=== PATIENT | female | born 1950 | race Caucasian/White ===

== ENCOUNTER 2020-08-18 12:44 | Outpatient (REF) | payer MEDICARE, SELFPAY ==
--- NOTE | ~2020-08-18 | MM_ITS ---
EXAMINATION: MM SCREENING DIGITAL BREAST TOMOSYNTHESIS, BILATERAL CLINICAL INFORMATION: Screening. Asymptomatic. Left stereotactic biopsy 02/21/2006 (proliferative fibrocystic changes, florid duct cell hyperplasia, and columnar cell hyperplasia) status post excision 03/30/2006. The lifetime risk of breast cancer based on the Tyrer-Cuzick Model is 17%. COMPARISON: Mammography: 02/20/2019, 01/20/2018, 09/29/2016 TECHNIQUE: Digital breast tomosynthesis is performed in both the craniocaudal and mediolateral oblique views along with computer-aided detection (CAD). Synthesized 2D images are generated from the tomosynthesis. Technologist notes technically challenging exam due to patient's back and leg pain. Images tailored to patient capabilities. FINDINGS: There are scattered areas of fibroglandular density (ACR BI-RADS breast composition Category b). There are no significant masses, abnormal calcifications, or other abnormalities. There is old scarring mid outer left breast again demonstrated. No significant changes from prior studies. MM/MM tomosynthesis screening BI IMPRESSION: No mammographic evidence of malignancy. ASSESSMENT: BI-RADS 2: Benign RECOMMENDATION: Routine annual mammography screening. This patient's information was entered into a reminder system with a target due date for their next mammogram.
== END 2020-08-18 12:45 | disposition home or self-care (01) ==
LOC: HO.MAMMO 12:44
PROVIDERS: PCP Internal Medicine; Visit Provider Internal Medicine
DX: Z12.31 Encounter for screening mammogram for malignant neoplasm of breast (principal)
CPT/HCPCS: 77063; 77067

== ENCOUNTER 2022-02-11 11:28 | Outpatient (REF) | payer MEDICARE, SELFPAY ==
[2022-02-11 14:08] LABS: MANUAL DIFF FLAG NO
[2022-02-11 14:20] LABS: Basophils Absolute Auto 0.1 X10*3/uL (0.0-0.2); Basophils Percent Auto 0.8 % (0-2); Eosinophils Absolute Auto 0.1 X10*3/uL (0.0-0.4); Hematocrit 41.8 % (37.0-47.0); Hemoglobin 13.8 g/dl (12.0-16.0); Imm Gran Abs Auto 0.02 X10*3/uL (0.00-0.03); Imm Gran Pct Auto 0.3 % (0.0-0.4); Lymphocytes Absolute Auto 1.6 X10*3/uL (1.2-4.9); Lymphocytes Percent Auto 22.4 % (20-40); Mean Corpuscular Hemoglobin 30.4 pg (27.0-33.0); Mean Corpuscular Volume 92.1 fL (80.0-98.0); Mean Platelet Volume 10.8 fL (9.4-12.3); Monocytes Absolute Auto 0.6 X10*3/uL (0.1-1.2); Monocytes Percent Auto 7.9 % (2-11); Neutrophils Absolute Auto 4.8 x10*3/uL (2.0-8.3); Neutrophils Percent Auto 67.6 % (45-73); Platelet Count 225 X10*3/uL (160-400); Red Blood Count 4.54 X10*6/uL (4.20-5.50); Red Cell Distribution Width 12.3 % (11.0-16.0); White Blood Count 7.1 X10*3/uL (4.8-10.8)
[2022-02-11 14:51] LABS: Alanine Aminotransferase 153 U/L (0-31); Albumin Level 3.9 g/dL (3.5-5.0); Alkaline Phosphatase 136 U/L (39-117); Anion Gap 15 (12-20); Aspartate Amino Transferase 37 U/L (5-31); Bilirubin Total 0.5 mg/dL (0.0-1.0); Blood Urea Nitrogen 18 mg/dL (9-16); Calcium 9.4 mg/dL (8.4-10.2); Carbon Dioxide 26 mmol/L (22-29); Chloride 102 mmol/L (96-108); Cholesterol 239 mg/dL; Estimated Glomerular Filt Rate > 60; Glucose Random 134 mg/dL (60-115); Potassium 4.3 mmol/L (3.3-5.1); Sodium 139 mmol/L (135-145); Total Protein 6.7 g/dL (6.5-8.0)
== END 2022-02-11 11:29 | disposition home or self-care (01) ==
LOC: HO.10HDL 11:28
PROVIDERS: Visit Provider Internal Medicine
DX: R79.89 Other specified abnormal findings of blood chemistry (principal); I10 Essential (primary) hypertension
CPT/HCPCS: 36415; 80053; 82465; 85025

== ENCOUNTER 2022-03-31 13:05 | Outpatient (REF) | payer MEDICARE, SELFPAY ==
[2022-03-31 15:04] LABS: Alanine Aminotransferase 10 U/L (0-31); Albumin Level 4.2 g/dL (3.5-5.0); Alkaline Phosphatase 80 U/L (39-117); Anion Gap 14 (12-20); Aspartate Amino Transferase 18 U/L (5-31); Bilirubin Total 0.6 mg/dL (0.0-1.0); Blood Urea Nitrogen 24 mg/dL (9-16); Calcium 9.7 mg/dL (8.4-10.2); Carbon Dioxide 24 mmol/L (22-29); Chloride 102 mmol/L (96-108); Estimated Glomerular Filt Rate > 60; Glucose Random 122 mg/dL (60-115); Potassium 4.3 mmol/L (3.3-5.1); Sodium 136 mmol/L (135-145)
== END 2022-03-31 13:06 | disposition home or self-care (01) ==
LOC: HO.10HDL 13:05
PROVIDERS: Visit Provider Internal Medicine
DX: E78.00 Pure hypercholesterolemia, unspecified (principal)
CPT/HCPCS: 36415; 80053

== ENCOUNTER 2022-05-11 10:58 | Outpatient (REF) | payer MEDICARE, SELFPAY ==
[2022-05-11 15:27] LABS: Free T4 (Free Thyroxine) 0.99 ng/dL (0.71-1.85); Thyroid Stimulating Hormone 1.13 uIU/mL (0.32-4.0)
[2022-05-11 15:37] LABS: Vitamin B12 259 pg/mL (200-900)
[2022-05-11 17:14] LABS: C Reactive Protein < 0.10 mg/dL (< or = 0.50); Cholesterol 255 mg/dL; HDL Cholesterol 62 mg/dL; LDL Cholesterol Calculated 166 mg/dl; Triglycerides 137 mg/dL
== END 2022-05-11 10:59 | disposition home or self-care (01) ==
LOC: HO.10HDL 10:58
PROVIDERS: Visit Provider Internal Medicine
DX: E78.00 Pure hypercholesterolemia, unspecified (principal); R53.83 Other fatigue
CPT/HCPCS: 36415; 80061; 82607; 84439; 84443; 86140

== ENCOUNTER 2022-05-12 07:33 | Outpatient (REF) | payer MEDICARE, SELFPAY ==
[2022-05-12 13:41] LABS: MANUAL DIFF FLAG NO
[2022-05-12 13:45] LABS: Basophils Absolute Auto 0.1 X10*3/uL (0.0-0.2); Basophils Percent Auto 0.7 % (0-2); Eosinophils Absolute Auto 0.1 X10*3/uL (0.0-0.4); Eosinophils Percent Auto 0.7 % (0-4); Hematocrit 45.1 % (37.0-47.0); Hemoglobin 14.8 g/dl (12.0-16.0); Imm Gran Abs Auto 0.01 X10*3/uL (0.00-0.03); Imm Gran Pct Auto 0.1 % (0.0-0.4); Lymphocytes Absolute Auto 2.2 X10*3/uL (1.2-4.9); Lymphocytes Percent Auto 29.1 % (20-40); Mean Corpuscular HGB Conc 32.8 g/dl (31.0-35.0); Mean Corpuscular Hemoglobin 30.5 pg (27.0-33.0); Mean Corpuscular Volume 92.8 fL (80.0-98.0); Mean Platelet Volume 10.9 fL (9.4-12.3); Monocytes Absolute Auto 0.6 X10*3/uL (0.1-1.2); Monocytes Percent Auto 8.1 % (2-11); Neutrophils Absolute Auto 4.6 x10*3/uL (2.0-8.3); Neutrophils Percent Auto 61.3 % (45-73); Platelet Count 213 X10*3/uL (160-400); Red Blood Count 4.86 X10*6/uL (4.20-5.50); Red Cell Distribution Width 12.5 % (11.0-16.0); White Blood Count 7.6 X10*3/uL (4.8-10.8)
== END 2022-05-12 07:34 | disposition home or self-care (01) ==
LOC: HO.10HDL 07:33
PROVIDERS: Visit Provider Internal Medicine
DX: R53.83 Other fatigue (principal); E78.00 Pure hypercholesterolemia, unspecified
CPT/HCPCS: 36415; 85025

== ENCOUNTER 2022-05-14 12:20 | Outpatient (REF) | payer MEDICARE, SELFPAY ==
[2022-05-14 14:26] LABS: Alanine Aminotransferase 8 U/L (0-31); Albumin Level 4.1 g/dL (3.5-5.0); Alkaline Phosphatase 76 U/L (39-117); Anion Gap 13 (12-20); Aspartate Amino Transferase 17 U/L (5-31); Bilirubin Total 0.5 mg/dL (0.0-1.0); Blood Urea Nitrogen 13 mg/dL (9-16); Calcium 9.8 mg/dL (8.4-10.2); Carbon Dioxide 26 mmol/L (22-29); Chloride 102 mmol/L (96-108); Estimated Glomerular Filt Rate > 60; Glucose Random 101 mg/dL (60-115); Magnesium 2.1 mg/dL (1.6-2.6); Potassium 4.4 mmol/L (3.3-5.1); Sodium 137 mmol/L (135-145); Total Protein 6.7 g/dL (6.5-8.0)
== END 2022-05-14 12:21 | disposition home or self-care (01) ==
LOC: HO.10HDL 12:20
PROVIDERS: Visit Provider Internal Medicine
DX: E78.00 Pure hypercholesterolemia, unspecified (principal); I10 Essential (primary) hypertension; R25.2 Cramp and spasm; M25.50 Pain in unspecified joint
CPT/HCPCS: 36415; 80053; 83735; 84550

== ENCOUNTER 2022-07-05 11:41 | Outpatient (REF) | payer MEDICARE, SELFPAY ==
[2022-07-05 14:25] LABS: Alanine Aminotransferase 10 U/L (0-31); Albumin Level 4.2 g/dL (3.5-5.0); Alkaline Phosphatase 73 U/L (39-117); Anion Gap 13 (12-20); Aspartate Amino Transferase 18 U/L (5-31); Bilirubin Total 0.6 mg/dL (0.0-1.0); Blood Urea Nitrogen 18 mg/dL (9-16); C Reactive Protein < 0.10 mg/dL (< or = 0.50); Calcium 9.5 mg/dL (8.4-10.2); Carbon Dioxide 26 mmol/L (22-29); Chloride 103 mmol/L (96-108); Estimated Glomerular Filt Rate > 60; Glucose Fasting 125 mg/dL (60-99); Sodium 138 mmol/L (135-145); Total Protein 6.7 g/dL (6.5-8.0)
[2022-07-05 14:37] LABS: Erythrocyte Sedimentation Rate 6 MM/HR (0-20)
[2022-07-05 14:46] LABS: Uric Acid 5.4 mg/dL (2.4-5.7)
== END 2022-07-05 11:42 | disposition home or self-care (01) ==
LOC: HO.10HDL 11:41
PROVIDERS: Visit Provider Internal Medicine
DX: M79.673 Pain in unspecified foot (principal)
CPT/HCPCS: 36415; 80053; 84550; 85652; 86140

== ENCOUNTER 2022-11-04 10:50 | Outpatient (REF) | payer MEDICARE, SELFPAY ==
[2022-11-04 14:17] LABS: Estimated Average Glucose 100 mg/dL; Hemoglobin A1c % 5.1 %
[2022-11-04 14:35] LABS: Anion Gap 16 (12-20); Blood Urea Nitrogen 16 mg/dL (9-16); Calcium 9.9 mg/dL (8.4-10.2); Carbon Dioxide 28 mmol/L (22-29); Chloride 99 mmol/L (96-108); Estimated Glomerular Filt Rate > 60; Glucose Random 146 mg/dL (60-115); Potassium 3.7 mmol/L (3.3-5.1); Sodium 139 mmol/L (135-145)
== END 2022-11-04 10:51 | disposition home or self-care (01) ==
LOC: HO.10HDL 10:50
PROVIDERS: Visit Provider Internal Medicine
DX: R73.03 Prediabetes (principal)
CPT/HCPCS: 36415; 80048; 83036

== ENCOUNTER 2023-02-23 11:50 | Outpatient (REF) | payer MEDICARE, SELFPAY ==
[2023-02-23 13:28] LABS: MANUAL DIFF FLAG NO
[2023-02-23 13:41] LABS: Basophils Percent Auto 0.5 % (0-2); Eosinophils Absolute Auto 0.1 X10*3/uL (0.0-0.4); Eosinophils Percent Auto 0.9 % (0-4); Hematocrit 45.8 % (37.0-47.0); Imm Gran Abs Auto 0.03 X10*3/uL (0.00-0.03); Imm Gran Pct Auto 0.4 % (0.0-0.4); Lymphocytes Absolute Auto 1.5 X10*3/uL (1.2-4.9); Lymphocytes Percent Auto 18.7 % (20-40); Mean Corpuscular HGB Conc 32.8 g/dl (31.0-35.0); Mean Corpuscular Hemoglobin 30.4 pg (27.0-33.0); Mean Corpuscular Volume 92.7 fL (80.0-98.0); Monocytes Absolute Auto 0.8 X10*3/uL (0.1-1.2); Monocytes Percent Auto 9.3 % (2-11); Neutrophils Absolute Auto 5.7 x10*3/uL (2.0-8.3); Neutrophils Percent Auto 70.2 % (45-73); Platelet Count 235 X10*3/uL (160-400); Red Blood Count 4.94 X10*6/uL (4.20-5.50); Red Cell Distribution Width 12.8 % (11.0-16.0); White Blood Count 8.1 X10*3/uL (4.8-10.8)
[2023-02-23 14:14] LABS: Free T4 (Free Thyroxine) 0.96 ng/dL (0.71-1.85); Thyroid Stimulating Hormone 1.34 uIU/mL (0.32-4.0)
== END 2023-02-23 11:51 | disposition home or self-care (01) ==
LOC: HO.10HDL 11:50
PROVIDERS: Visit Provider Internal Medicine
DX: R53.83 Other fatigue (principal)
CPT/HCPCS: 36415; 84439; 84443; 85025

== ENCOUNTER 2023-05-10 11:13 | Outpatient (REF) | payer MEDICARE, SELFPAY ==
[2023-05-10 13:18] LABS: MANUAL DIFF FLAG NO
[2023-05-10 13:21] LABS: Basophils Percent Auto 0.5 % (0-2); Eosinophils Percent Auto 0.4 % (0-4); Hematocrit 46.5 % (37.0-47.0); Hemoglobin 15.5 g/dl (12.0-16.0); Imm Gran Abs Auto 0.02 X10*3/uL (0.00-0.03); Imm Gran Pct Auto 0.3 % (0.0-0.4); Lymphocytes Absolute Auto 1.6 X10*3/uL (1.2-4.9); Lymphocytes Percent Auto 21.5 % (20-40); Mean Corpuscular HGB Conc 33.3 g/dl (31.0-35.0); Mean Corpuscular Hemoglobin 30.3 pg (27.0-33.0); Mean Corpuscular Volume 90.8 fL (80.0-98.0); Mean Platelet Volume 10.5 fL (9.4-12.3); Monocytes Absolute Auto 0.6 X10*3/uL (0.1-1.2); Monocytes Percent Auto 7.8 % (2-11); Neutrophils Absolute Auto 5.1 x10*3/uL (2.0-8.3); Neutrophils Percent Auto 69.5 % (45-73); Platelet Count 214 X10*3/uL (160-400); Red Blood Count 5.12 X10*6/uL (4.20-5.50); Red Cell Distribution Width 12.4 % (11.0-16.0); White Blood Count 7.3 X10*3/uL (4.8-10.8)
[2023-05-10 15:11] LABS: Alanine Aminotransferase 13 U/L (0-31); Albumin Level 4.3 g/dL (3.5-5.0); Alkaline Phosphatase 76 U/L (39-117); Anion Gap 14 (12-20); Aspartate Amino Transferase 21 U/L (5-31); Bilirubin Total 0.5 mg/dL (0.0-1.0); Blood Urea Nitrogen 17 mg/dL (9-16); C Reactive Protein < 0.04 mg/dL (< or = 0.50); Carbon Dioxide 29 mmol/L (22-29); Chloride 102 mmol/L (96-108); Cholesterol 269 mg/dL (<200); Estimated Glomerular Filt Rate > 60; Glucose Random 94 mg/dL (60-115); Sodium 141 mmol/L (135-145); Total Protein 7.5 g/dL (6.5-8.0); Uric Acid 5.1 mg/dL (2.4-5.7)
== END 2023-05-10 11:14 | disposition home or self-care (01) ==
LOC: HO.10HDL 11:13
PROVIDERS: Visit Provider Internal Medicine
DX: I10 Essential (primary) hypertension (principal); M79.7 Fibromyalgia; M79.673 Pain in unspecified foot
CPT/HCPCS: 36415; 80053; 82306; 82465; 84550; 85025; 86140

== ENCOUNTER 2023-06-16 12:21 | Outpatient (REF) | payer MEDICARE, SELFPAY ==
--- NOTE | ~2023-06-16 | MM_ITS ---
EXAMINATION: BONE DENSITOMETRY CLINICAL INDICATION: Asymptomatic menopausal state. COMPARISON: Baseline BD dated 02/15/2014. TECHNIQUE: Using a textPlus DXA System (software version: 13.1) manufactured by [employer], dual-energy x-ray absorptiometry was performed of the lumbar spine and left hip. The images are of good technical quality. Summary results are attached. FINDINGS: LEFT FEMUR, NECK: Current: BMD 0.571 g/cm2, Z-score -1.6, T-score -3.4, osteoporosis. Baseline: BMD 0.620 g/cm2. LEFT FEMUR, TOTAL: Current: BMD 0.538 g/cm2, Z-score -2.2, T-score -3.7, osteoporosis, 11.7% decrease from baseline (<5% change is not significant). Baseline: BMD 0.609 g/cm2. AP SPINE L1-L4: Current: BMD 0.789 g/cm2, Z-score -1.8, T-score -3.3, osteoporosis, 12.7% decrease from baseline (<5% change is not significant). Baseline: BMD 0.904 g/cm2. IDENTIFIED RISK FACTORS: Height loss, history of fracture (adult), menopause, osteoporosis. HISTORY OF FRACTURE: Other. MEDICATIONS: Calcium, vitamin D. MM/XR DEXA axial skeleton IMPRESSION: 1. DIAGNOSIS: Osteoporosis based on the lowest T-score value of -3.7 in the total femur applying World Health Organization criteria. 2. 10-YEAR FRACTURE RISK PREDICTION, FRAX: According to the guidelines, FRAX calculation should only be performed on patients in the osteopenia bone density category. Therefore, FRAX was not performed on this patient. 3. Treatment Recommendations: NOF guidelines recommend consideration for treatment in postmenopausal women and men age 50 and older presenting with the following: -A hip or vertebral (clinical or morphometric) fracture. -T-score less than or equal to -2.5 at the femoral neck or spine after appropriate evaluation to exclude secondary causes. -Low bone mass at the hip or spine and a 10-year fracture probability by FRAX of greater than or equal to 3% for hip fracture or greater than or equal to 20% for major osteoporotic fracture based on the [place] adapted WHO algorithm. 4. Other Recommendations: All treatment decisions require clinical judgment and consideration of individual patient factors, including patient preferences, comorbidities, previous drug use, risk factors not captured in the FRAX model (e.g. frailty, falls, vitamin D deficiency, increased bone turnover, interval significant decline in bone density) and possible under or overestimation of fracture risk by FRAX. Additional medical evaluation for secondary cause of low bone mineral density may be appropriate. FUTURE SCAN RECOMMENDATION: People with diagnosed cases of osteoporosis or at high risk for fracture should have regular bone mineral density tests. For patients eligible for Medicare, routine testing is allowed once every 2 years. The testing frequency can be increased to one year for patients who have rapidly progressing disease, those who are receiving or discontinuing medical therapy to restore bone mass, or have additional risk factors.
--- NOTE | ~2023-06-16 | MM_ITS ---
EXAMINATION: MM SCREENING DIGITAL BREAST TOMOSYNTHESIS, BILATERAL CLINICAL INFORMATION: Screening. Asymptomatic. The patient is status post benign left excisional biopsy in 2006. COMPARISON: Mammography: This study is compared with prior exams dating back to 2018. TECHNIQUE: Digital breast tomosynthesis is performed in both the craniocaudal and mediolateral oblique views along with computer-aided detection (CAD). Synthesized 2D images are generated from the tomosynthesis. FINDINGS: There are scattered areas of fibroglandular density (ACR BI-RADS breast composition Category b). There are no significant masses, abnormal calcifications, or other abnormalities. There are postsurgical changes in the lateral aspect of the left breast. There is unchanged, coarse, benign calcification in the lateral aspect of the right breast. MM/MM tomosynthesis screening BI IMPRESSION: No mammographic evidence of malignancy. ASSESSMENT: BI-RADS BI-RADS 2 - Benign Findings RECOMMENDATION: Routine annual mammography screening. 1 year F/U This examination should not preclude the clinical evaluation of a suspicious palpable abnormality. This patient's information was entered into a reminder system with a target due date for their next mammogram.
== END 2023-06-16 12:22 | disposition home or self-care (01) ==
LOC: HO.MAMMO 12:21
PROVIDERS: PCP Internal Medicine; Visit Provider Internal Medicine
DX: Z12.31 Encounter for screening mammogram for malignant neoplasm of breast (principal); Z13.820 Encounter for screening for osteoporosis; Z78.0 Asymptomatic menopausal state
CPT/HCPCS: 77063; 77067; 77080

== ENCOUNTER → 2023-06-16 13:00 | Outpatient (BNV) | payer MEDICARE, SELFPAY | PROVIDERS: PCP Internal Medicine; Visit Provider Radiology Diagnostic Radiology | DX: Z12.31 Encounter for screening mammogram for malignant neoplasm of breast (principal) | CPT/HCPCS: 77063; 77067 ==

== ENCOUNTER 2023-07-01 13:48 | Emergency (ER) | payer MEDICARE, SELFPAY ==
--- NOTE | 2023-07-01 | ECG_ITS ---
Test Reason : CHEST PAIN Blood Pressure : / mmHG Vent. Rate : 081 BPM Atrial Rate : 081 BPM P-R Int : 138 ms QRS Dur : 076 ms QT Int : 358 ms P-R-T Axes : 080 047 064 degrees QTc Int : 415 ms Normal sinus rhythm with sinus arrhythmia Normal ECG When compared with ECG of 18-SEP-2005 07:39, No significant change was found Referred By: Generic ED Physician Electronically Signed By:PAVAN VILLALBA MD
--- NOTE | ~2023-07-01 | XR_ITS ---
EXAMINATION: XR CHEST CLINICAL INFORMATION: Pain. COMPARISON: Chest radiograph dated 08/26/2009. TECHNIQUE: Frontal view of the chest was obtained. FINDINGS: Heart size is normal. The lungs are clear. The lungs are hyperinflated and there is flattening of the diaphragm consistent with chronic obstructive pulmonary disease. Pleural spaces are clear. No pneumothorax. No acute osseous abnormality. XR/XR chest 1V IMPRESSION: Findings consistent with chronic obstructive pulmonary disease. No active disease.
[2023-07-01 14:06] VITALS: BP 177/87; PULSE 68; RESP 16; TEMP 37; O2SAT 95; BMI 24.0
[2023-07-01 14:29] LABS: MANUAL DIFF FLAG NO
[2023-07-01 14:31] LABS: Basophils Percent Auto 0.5 % (0-2); Eosinophils Percent Auto 0.3 % (0-4); Imm Gran Abs Auto 0.02 X10*3/uL (0.00-0.03); Imm Gran Pct Auto 0.3 % (0.0-0.4); Lymphocytes Absolute Auto 1.6 X10*3/uL (1.2-4.9); Lymphocytes Percent Auto 20.8 % (20-40); Mean Corpuscular HGB Conc 33.3 g/dl (31.0-35.0); Mean Corpuscular Hemoglobin 30.4 pg (27.0-33.0); Mean Corpuscular Volume 91.1 fL (80.0-98.0); Monocytes Absolute Auto 0.6 X10*3/uL (0.1-1.2); Monocytes Percent Auto 7.4 % (2-11); Neutrophils Absolute Auto 5.3 x10*3/uL (2.0-8.3); Neutrophils Percent Auto 70.7 % (45-73); Platelet Count 209 X10*3/uL (160-400); Red Blood Count 5.27 X10*6/uL (4.20-5.50); Red Cell Distribution Width 13.1 % (11.0-16.0); White Blood Count 7.4 X10*3/uL (4.8-10.8)
[2023-07-01 14:48] LABS: Alanine Aminotransferase 23 U/L (0-31); Albumin Level 4.3 g/dL (3.5-5.0); Alkaline Phosphatase 76 U/L (39-117); Anion Gap 13 (12-20); Aspartate Amino Transferase 34 U/L (5-31); Bilirubin Total 0.5 mg/dL (0.0-1.0); Blood Urea Nitrogen 12 mg/dL (9-16); Calcium 9.8 mg/dL (8.4-10.2); Carbon Dioxide 27 mmol/L (22-29); Chloride 102 mmol/L (96-108); Creatinine Clr Calc Pharmacy 46.8; Estimated Glomerular Filt Rate 56; Glucose Random 104 mg/dL (60-115); Potassium 4.2 mmol/L (3.3-5.1); Sodium 138 mmol/L (135-145); Total Protein 7.6 g/dL (6.5-8.0)
--- NOTE | 2023-07-01 14:49 | ED_ITS ---
HPI - Chest Pain General Chief Complaint: Chest Pain Stated Complaint: Chest pain sent by urgent care Time Seen by Provider: 07/01/23 21:01 Source: patient and family Mode of arrival: ambulatory Limitations: no limitations History of Present Illness HPI narrative: 73 yo female with PMH of HTN, treated for dental infection on amoxicillin and flagyl with one more day left doing well who was at home at rest developed L sided chest heaviness sensation not worse with exertion, no fevers, no dyspnea, not pleuritic. No nausea. Pain lasted a few hours. She has no symptoms now. She feels much better. Has no hx of CAD. Sent by as EKG read atrial enlargement. complaint: chest pain Onset (ago): hour(s) (early this AM) Timing of current episode: now resolved Prior episodes: No Onset: during rest Pain location: left chest Pain radiation: none Severity: mild Quality: aching and heaviness Relieving factors: nothing Exacerbating factors: nothing Treatment prior to arrival: none Related Data Allergies Allergy/AdvReac Type Severity Reaction Status Date / Time latex [LATEX] Allergy Unknown ITCHING Verified 07/01/23 14:09 morphine Allergy Unknown hallucinati Verified 07/01/23 14:09 ons pentazocine [From TALWIN] Allergy Unknown HALLUCINAGE Verified 07/01/23 14:09 N Talwin Allergy Unknown Unknown Uncoded 07/01/23 14:09 Yellow dye Allergy Unknown Unknown Uncoded 07/01/23 14:09 Review of Systems 2 Review of Systems: Constitutional : No Weight loss, No Fever, No Chills ENT/Mouth : No sore throat, No Rhinorrhea Eyes: No Eye Pain, No Swelling Cardiovascular : pos Chest Pain, no SOB, no Dyspnea on Exertion, No Orthopnea, No Edema, No Palpitations Respiratory : No Cough, No Sputum Gastrointestinal : no Nausea, No Vomiting, No Diarrhea, No abdominal Pain, No Hematochezia, No Melena Genitourinary : No Dysuria, No Urinary Frequency Musculoskeletal : No joint pain, No Myalgias, No Joint Swelling Skin : No Skin Lesions, No rash Neuro : No Weakness, No Numbness, No Dizziness, No Headache All other systems reviewed and are negative PMFSH Past Medical History Attestation statement: The following information was validated with the patient. Medical History (Updated 07/01/23 @ 21:45 by Shira Terry DO) HTN (hypertension) Social History Social History (Updated 07/01/23 @ 21:45 by Shira Terry DO) Patient Tobacco Use Status: Never used Tobacco Physical Exam 2 Vital Signs: Vital Signs: Last Vital Signs Temp 97.7 F 07/01/23 20:43 Pulse 77 07/01/23 20:43 Resp 20 07/01/23 20:43 BP 153/73 H 07/01/23 20:43 Pulse Ox 94 07/01/23 20:43 O2 Del Method Room Air 07/01/23 20:43 BMI result Body Mass Index 24.0 Appearance: Alert. Oriented X3. No acute distress. Eyes: Pupils equal, round and reactive to light. ENT: Pharynx normal. Neck: Normal inspection. Neck supple. CVS: Normal heart rate and rhythm. Pulses normal. Respiratory: No respiratory distress. Breath sounds normal. Abdomen: Soft and nontender. Skin: Skin warm and dry. Normal skin color. Normal skin turgor. Extremities: No lower extremity edema. No calf ttp Neuro: Oriented X 3. No motor deficit. No sensory deficit. Course Course Course Narrative: This is an RME: Additional HPI, ROS, PE not included below will be deferred to primary provider. Patient is a 73-year-old female who presents emergency department for evaluation of left anterior chest pain described pressure. Denies shortness of breath, numbness or tingling of the extremities, nausea, vomiting, neck pain, headache. She was at urgent care prior to arrival and referred to ED for further evaluation. Plan: Labs, viral testing, EKG Medical Decision Making Medical Decision Making MDM Narrative: 73 yo female with known no CAD, PMH of HTN has been on amoxicillin and flagyl since 06/22 here with L sided chest pressure starting early this AM. She has no pain now it lasted a few hours no associated nausea, dyspnea, shortness of breath no signs of DVT, distal pulses intact. She has no murmur, fevers it is not pleuritic not consistent with endocarditis. At this time will refer to PCP for ECHO if troponin and labs reassuring. Differential Diagnosis Differential Diagnoses: The differential diagnosis associated with the presentation includes atypical chest pain, distal pulses intact doubt dissection no signs of DVT, not pleuritic no shortness of breath doubt VTE not pleuritic, no murmur, no fevers doubt endocarditis Admission/Observation Consideration of admission/observation: Escalation of care including admission/observation considered troponin flat, EKG nonischemic, CXR negative non exertional chest pain Lab Data [facility] Lab Attestation statement: I reviewed the patient's lab results. 07/01/23 14:24 07/01/23 14:24 Labs: Lab Results 07/01/23 Range/Units 14:24 WBC 7.4 (4.8-10.8) X10*3/uL RBC 5.27 (4.20-5.50) X10*6/uL Hgb 16.0 (12.0-16.0) g/dl Hct 48.0 H (37.0-47.0) % MCV 91.1 (80.0-98.0) fL MCH 30.4 (27.0-33.0) pg MCHC 33.3 (31.0-35.0) g/dl RDW 13.1 (11.0-16.0) % Plt Count 209 (160-400) X10*3/uL MPV 10.0 (9.4-12.3) fL Immature Gran % (Auto) 0.3 (0.0-0.4) % Neut % (Auto) 70.7 (45-73) % Lymph % (Auto) 20.8 (20-40) % [place] % (Auto) 7.4 (2-11) % Eos % (Auto) 0.3 (0-4) % Baso % (Auto) 0.5 (0-2) % Lymph # (Auto) 1.6 (1.2-4.9) X10*3/uL [place] # (Auto) 0.6 (0.1-1.2) X10*3/uL Eos # (Auto) 0.0 (0.0-0.4) X10*3/uL Baso # (Auto) 0.0 (0.0-0.2) X10*3/uL Abs Immat Gran (auto) 0.02 (0.00-0.03) X10*3/uL Absolute Neuts (auto) 5.3 (2.0-8.3) x10*3/uL Absolute Nucleated RBC 0.000 (0.0-0.012) X10*3/uL Nucleated RBC % (auto) 0.0 (0.0-0.2) /100WBC Sodium 138 (135-145) mmol/L Potassium 4.2 (3.3-5.1) mmol/L Chloride 102 (96-108) mmol/L Carbon Dioxide 27 (22-29) mmol/L Anion Gap 13 (12-20) BUN 12 (9-16) mg/dL Creatinine 0.97 (0.5-1.4) mg/dL Estim Creat Clear Calc 46.8 Estimated GFR 56 Random Glucose 104 (60-115) mg/dL Calcium 9.8 (8.4-10.2) mg/dL Magnesium 2.0 (1.6-2.6) mg/dL Total Bilirubin 0.5 (0.0-1.0) mg/dL AST 34 H (5-31) U/L ALT 23 (0-31) U/L Alkaline Phosphatase 76 (39-117) U/L Troponin I High Sens < 2.7 (<3.5-17.0) ng/L Total Protein 7.6 (6.5-8.0) g/dL Albumin 4.3 (3.5-5.0) g/dL Influenza Type A (PCR) NEGATIVE (Negative) Influenza Type B (PCR) NEGATIVE (Negative) RSV RNA Qual (PCR) NEGATIVE (Negative) SARS-CoV-2 RNA (RT-PCR) NEGATIVE (Negative) Independent Interpretation I performed an independent interpretation of an: EKG and Plain X-Ray (normal ) Interpretation: Rate: 81 Rhythm: NSR [place]: normal Normal P waves. Normal FIOR. Normal QRS complex. ST T wave : normal no RAJANI qTC: 415 prior studies: no acute ischemia The study has been interpreted contemporaneously by me. . Radiology Impression Discussion of test interpretation with radiology: I have reviewed the radiologist's reading. Independent Historian Clinical information obtained from an independent historian. History obtained from or confirmed by: Spouse External Record Review External record reviewed: Outpatient record Discharge Plan Discharge Clinical Impression: Atypical chest pain Patient Disposition: Home, Self-Care Instructions: Chest Pain (ED) Additional Instructions: you will need an ECHO of your heart. please talk to your primary care doctor about scheduling this. Your EKG and blood test did not show and active heart attack. return for any worsening symptoms such as fevers, shortness of breath, pain with breathing or any other concerns.
[2023-07-01 14:56] LABS: Troponin-I High Sensitivity < 2.7 ng/L (<3.5-17.0)
[2023-07-01 15:08] LABS: Influenza A PCR NEGATIVE (Negative); Influenza B PCR NEGATIVE (Negative); Resp Syncy Virus RNA Qual PCR NEGATIVE (Negative); SARS COV2 PCR INHOUSE NEGATIVE (Negative)
[2023-07-01 20:43] VITALS: BP 153/73; PULSE 77; RESP 20; TEMP 36.5; O2SAT 94
--- NOTE | 2023-07-01 21:22 | PC.NURSE ---
PT from home reporting getting an ekg at pcp and being sent in after provider noted pt to have enlarged heart. at this time pt denies chest pain n/v/d. at bedside reports pt can eat, pt given sandwich and crackers.
[2023-07-01 22:16] VITALS: BP 151/60; PULSE 78; RESP 18; TEMP 36.4; O2SAT 94
== END 2023-07-01 22:17 | disposition home or self-care (01) ==
PROVIDERS: Emergency Provider Emergency Medicine
DX: R07.89 Other chest pain (principal); I10 Essential (primary) hypertension; Z11.52 Encounter for screening for COVID-19; Z20.828 Contact with and (suspected) exposure to other viral communicable diseases
CPT/HCPCS: 0241U; 71045; 80053; 83735; 84484; 85025; 93005; 99283; 99285

== ENCOUNTER → 2023-07-01 14:17 | Outpatient (BNV) | payer MEDICARE, SELFPAY | PROVIDERS: Emergency Provider Emergency Medicine; Visit Provider Internal Medicine Cardiovascular Disease | DX: R07.9 Chest pain, unspecified (principal) | CPT/HCPCS: 93010 ==

== ENCOUNTER → 2023-07-08 09:54 | Outpatient (REF) | payer MEDICARE, SELFPAY ==
--- NOTE | 2023-07-08 09:57 | CA_ITS ---
Transthoracic Echocardiogram Patient (Last, First, Middle): Nicole Osborn A Gender: Female Date of : 1950 Age: 73 Procedure Date: 07/08/2023 Procedure Type: Transthoracic Echocardiogram Location: OP Height: 167.64 cm Weight: 67.59 kg BSA: 1.76 m2 Heart Rate: bpm BP: 118 / 72 mmHg Parole Supervisor: TO Referring MD: Nathen Dasilva MD Symptoms: R07.9 CHEST PAIN Study Quality: Fair ECG Rhythm: Sinus Conclusions: - The left ventricular systolic function is normal. The calculated ejection fraction is 60% by biplane method. - No obvious valvular pathology seen on this study. Findings Procedure Information The study quality is limited by the patients inability to tolerate the test. Left Ventricle Normal left ventricular cavity size. There is normal left ventricular wall thickness. The left ventricular systolic function is normal. The calculated ejection fraction is 60% by biplane method. There is no evidence of regional wall motion abnormalities. Diastolic function is normal for age. Right Ventricle Normal right ventricular cavity size and systolic function. Atria Both atria are normal in size. Aortic Valve There is a normal trileaflet aortic valve. There is no aortic valve stenosis. There is no aortic valve regurgitation. Mitral Valve The mitral valve appears normal. There is trace mitral valve regurgitation. There is no mitral valve stenosis. Pulmonic Valve The pulmonic valve is likely normal. Tricuspid Valve There is trace tricuspid valve regurgitation. There is no evidence of pulmonary hypertension. Great Vessels The asc aorta is normal in size. Venous The inferior vena cava is normal in size and collapses greater than 50% with inspiration. Pericardium/Pleural There is no evidence of pericardial effusion. Prior Study Comparison No prior study available for comparison. Recommendations, Care & Conclusions No obvious valvular pathology seen on this study. Measurements 2D Linear Measurements IVSd: 0.86 0.6-0.9/0.6-1.0 cm LVIDd: 4.54 3.9-5.3/4.2-5.9 cm LVIDd Index: 2.58 2.4-3.2/2.2-3.1 cm/m2 LVIDs: 3.16 2.0-3.6 cm LVPWd: 0.75 0.7-1.1 cm LA Diam: 2.30 2.7-3.8/3.0-4.0 cm LAIDs Index: 1.31 1.5-2.3 cm/m2 LV Mass: 144.83 67-162/88-224 g LV Mass Index: 82.29 43-95/49-115 g/m2 LVOT Diam: 2.00 3.0+(-)1.3 cm 2D Systolic Function EF 4C: 61.10 >55% EF 2C: 58.60 >55% EF BiP: 60.00 >55% Mitral Valve MV Pk E: 0.48 MV PK A: 0.59 MV Decel Time: 220.00 E/A: 0.80 E'Lateral: 7.83 E'Medial: 6.53 E/E' Med: 7.30 E/E' Lat: 6.10 PHT: 65.00 MVA PHT: 3.38 Decel [place]: 2.16 Aortic Valve AoV Pk Ector: 1.37 AoV Mn Ector: 0.94 AoV VTI: 0.26 AoV Pk Grad: 8.00 Aov Mn Grad: 4.00 LILIAN Cont.VTI: 2.94 LVOT LVOT Pk Ector: 1.21 LVOT Mn Ector: 0.71 LVOT VTI: 0.24 LVOT Pk Grad: 6.00 LVOT Mn Grad: 3.00 LVOT Diam: 2.00 LVOT Area: 3.14 Diastolic Function MV Pk E: 0.48 MV Pk A: 0.59 E/A: 0.80 E'Medial: 6.53 E/E' Med: 7.30 E' Laterial: 7.83 E/E' Lat: 6.10 Right Ventricle TAPSE (mm): 22.40 TVS' Ector: 11.10 Tricuspid Valve TR Pk Ector: 1.88 TR Pk Grad: 14.00 RA Press: 3.00 RVSP: 17.00 Great Vessels Aorta Sinus of Valsalva: 3.19 2.0-3.5 cm Ao Asc: 3.00 2.1-3.4 cm Updated in Other Vendor System with Status of Final Tadeo Prather MD electronically signed on 07/09/2023 2:04:11 PM with status of Final
== END ==
LOC: HO.CARD 09:54
PROVIDERS: PCP Internal Medicine; Visit Provider Internal Medicine
DX: R07.9 Chest pain, unspecified (principal)
CPT/HCPCS: 93306

== ENCOUNTER → 2023-07-08 09:57 | Outpatient (BNV) | payer MEDICARE, SELFPAY | PROVIDERS: PCP Internal Medicine; Visit Provider Internal Medicine | DX: I36.1 Nonrheumatic tricuspid (valve) insufficiency (principal); I34.0 Nonrheumatic mitral (valve) insufficiency; R07.9 Chest pain, unspecified | CPT/HCPCS: 93306 ==

== ENCOUNTER 2024-07-04 11:11 | Outpatient (REF) | payer MEDICARE, SELFPAY ==
--- OUTSIDE RECORDS SUMMARY | 2024-07-04 13:36 | XMS_ITS | Clinical Summary ---
Author Organization [facility] Address [address] [place] [address] Care Team Providers Care Fitness Leader Name Role Phone Nathen Dasilva MD Primary Care Provider [phone] Allergies Active Allergy Reactions Criticality Noted Date Comments Latex Maculopapular Rash 08/12/2014 Methylpar-Na Bisulfite-Pentazocine 0 08/12/2014 Medications Lisinopril 5 MG TabIndications:R ight upper quadrant abdominal pain 1 TABLET DAILY Active Diazepam 5 MG TabIndications:R ight upper quadrant abdominal pain PRN Activ e Active Problems No known active problems Social History Tobacco Use Types Packs/Day Years Used Date Smoking Tobacco: Former Alcohol Use Standard Drinks/Week Comments Not Asked 0 (1 standard drink = 0.6 oz pur e alcohol) Comments No Sex and Gender Information Value Date Recorded Sex Assigned at Not on file Legal Sex Female 12:40 PM EDT Gender Identity Not on file Sexual Orientation Not on file Last Filed Vital Signs Vital Sign Reading Time Taken Comments Blood Pressure 141/82 08/12/2014 12:59 PM EDT Pulse 78 08/12/2014 12:59 PM EDT Temperature 37.1 ??C (98.7 ??F) 08/12/2014 12:59 PM E DT Respiratory Rate 18 08/12/2014 12:59 PM EDT Oxygen Saturation - - Inhaled Oxygen Concentration - - Weight 66.7 kg (147 lb) 08/12/2014 12:59 PM EDT Height 167.6 cm (5' 6 ) 08/12/2014 12:59 PM EDT Body Mass Index 23.73 08/12/2014 12:59 PM EDT Plan of Treatment Health Maintenance Due Date Last Done Comments Hepatitis C Screening 1950 DTaP/Tdap/Td (1 - Tdap) 1966 Pneumococcal 50+ years (1 of 1 - PCV) 1998 Zoster (Shingrix) (1 of 2) 1998 Bone Density 2013 RSV (1 - 1-dose 75+ series) 2023 COVID-19 Vaccine (1 - 2023-2 5 season) 2023 Influenza (#1) 2023 HPV Vaccine Aged Out No longer eligi ble based on patient's age to complete this topic Hep A Aged Out No longer eligi ble based on patient's age to complete this topic Hep B Aged Out No longer eligi ble based on patient's age to complete this topic Hib Aged Out No longer eligi ble based on patient's age to complete this topic Mammogram/Breast Imaging Discontinued Meningococcal ACWY Aged Out No longer eligible based on patient's age to complete this topic Pap Smear Discontinued Zoster (Zostavax) Discontinued Insurance BCBS FEE FOR SERVICE MEDICARE Care Teams Fitness Leader Relationship Specialty Start Date End Date Nathen Dasilva MD [address] [place] [address] [place] [address] PCP - General Internal Medicine 08/12/14
--- OUTSIDE RECORDS SUMMARY | 2024-07-04 13:36 | XMS_ITS ---
Author Organization [facility] Care Team Providers Care Investment Accountant Name Role Phone Venkatesh Christianson Unavailable Unavailable Allergies and adverse reactions Code CodeSystem Substance Reaction Severity StartDate Concern Status Albuterol, Sulfa diazine and Talwin. Unknown Unknown active Care Team Name Role Address Phone Organization Dates Venkatesh Christianson Attending Physician [address] [place] [address], [phone], [place] (Office): : [facility] 03/02/2012 - 04/04/2012 Mental Status Section Date Assessment Total Score Description 04/04/2012 PHQ-9 01 minimal depress ion 03/08/2012 BIMS 14 cognitively int act PHQ-9 02 minimal depress ion Reason for Referral No Reasons for Referral Entered Social History Social History Observation Description Start Date End Date Code Code System Current Smoking Status Tobacco smoking consumption unknown 329081770 SNOMED CT Sex Assigned At Female 1950 20432-9 [facility] Vital Signs Code Code System Vitals Name Values and Units Timing Information 69680-0 LOINC Weight Ftovc=433.5 Units=Lbs 9279-1 LOINC Respiratory Rate Value=18.0 Units=/m in 03/15/2012 8462-4 [facility] Blood Pressure-Diastolic Value=68 Un its=mmHg 03/15/2012 8480-6 [facility] Blood Pressure-Systolic Vimwo=621 Un its=mmHg 03/15/2012 8310-5 [facility] Body Temperature Value=98.1 Units=?? F 03/15/2012 8867-4 [facility] Heart rate Value=72.0 Units=/min 54587-1 [facility] O2 % BldC Oximetry Value=94.0 Units= % 03/15/2012
== END 2024-07-04 11:12 | disposition home or self-care (01) ==
LOC: HO.MAMMO 11:11
PROVIDERS: PCP Internal Medicine; Visit Provider Internal Medicine
DX: Z12.31 Encounter for screening mammogram for malignant neoplasm of breast (principal)
CPT/HCPCS: 77063; 77067

== ENCOUNTER → 2024-07-04 11:45 | Outpatient (BNV) | payer MEDICARE, SELFPAY | PROVIDERS: PCP Internal Medicine; Visit Provider Internal Medicine | DX: Z12.31 Encounter for screening mammogram for malignant neoplasm of breast (principal) | CPT/HCPCS: 77063; 77067 ==

== ENCOUNTER 2024-08-23 14:34 | Outpatient (AMB) | payer MEDICARE, SELFPAY ==
--- NOTE | 2024-08-23 14:01 | MHC.PC.OV ---
Vital Signs 08/23/24 14:39 Height 5 ft 5 in Weight 134 lb BMI 22.3 BP 134/80 Blood Pressure Location Lt brachial Position Sitting Pulse 96 Pulse Source Pulse Oximeter Temp 97.7 F Temp Source Axillary Pulse Oximetry (%) 96 Oxygen Delivery Method Room Air Intake Visit Reasons: Routine - see comments Performance Improvement Manager Required: No Accompanied by: Self / Same As Patient Allergies latex [LATEX] Allergy (Unknown, Verified 08/23/24 14:02) ITCHING morphine Allergy (Unknown, Verified 08/23/24 14:02) hallucinations pentazocine [From [facility]ALWIN] Allergy (Unknown, Verified 08/23/24 14:02) HALLUCINAGEN [place] Allergy (Unknown, Uncoded 07/01/23 14:09) Unknown Yellow dye Allergy (Unknown, Uncoded 07/01/23 14:09) Unknown Tobacco use date assessed: 08/23/24 Fall risk assessment: 1 Fall in past year Last assessed Fall Risk: 08/23/24 Dental Screening Dental Screen Date: 08/23/24 Did you have a dental visit in the last 12 months?: Yes Did you have a dental problem in the last 6 months where you did not have access to dental care?: No HPI HPI Comments History of Present Illness Details The patient is a 74 year old female with a past medical history of hyperlipidemia, back pain, fibromyalgia, OA, costochondritis, anxiety, GERD presenting for follow up CV: on lisinopril 5mg daily. Denies chest pain Leaned over in the car about 4 weeks ago hurting the right lower rib. Osteoporosis: on calcium vitamin D Mammo 06/2024 Cologuard sent [facility] in [place] ROS see HPI PHYSICAL EXAM: GENERAL: Alert and oriented x 3. NAD EYES: EOMI. Anicteric. HENT: Moist mucous membranes. No scleral icterus. No cervical lymphadenopathy. LUNGS: Clear to auscultation bilaterally. CARDIOVASCULAR: Regular rate and rhythm. No murmur. No JVD. ABDOMEN: Soft, non-tender +bs EXTREMITIES: No edema. Non-tender. SKIN: No rashes or lesions. Warm. NEUROLOGIC: No focal neurological deficits. CN II-XII grossly intact PSYCHIATRIC: Cooperative. Appropriate mood and affect [facility] Medical History HTN (hypertension) Family History Mother No problems noted. Father No problems noted. Social History Housing: House Patient Tobacco Use Status: Former Tobacco user e-Cigarette/Vaping Use: Former Use service: No Current occupational status: retired Cognitive needs: No Hearing needs: No Vision needs: Yes (rx glasses) Questionnaire PHQ-9 Over the last 2 weeks, how often have you been bothered by any of the following problems? 1. Little interest or pleasure in doing things: not at all 2. Feeling down, depressed, or hopeless: not at all 3. Trouble falling or staying asleep, or sleeping too much: not at all 4. Feeling tired or having little energy: not at all 5. Poor appetite or overeating: not at all 6. Feeling bad about yourself - or that you are a failure or have let yourself or your family down: not at all 7. Trouble concentrating on things, such as reading the newspaper or watching television: not at all 8. Moving or speaking so slowly that other people could have noticed. Or the opposite - being so fidgety or restless that you have been moving around a lot more than usual: not at all 9. Thoughts that you would be better off or of hurting yourself in some way: not at all Total score: 0 Depression Screening Interpretation: Negative Depression Screening Done: Yes [id number] - PHQ-9 Billing: Yes Source: Developed by Drs. Rick Vega, Ave Christy, Chris Villalba and colleagues, with an educational nilo from [employer]. Thrive Questionnaire Date Thrive assessed: 08/23/24 I am a: Patient Within the past 12 months, did the food you bought not last and you didn't have the money to get more?: Never true Within the past 12 months, did you worry whether your food would run out before you got money to buy more?: Never true Do you have trouble paying for medicines?: No Do you have trouble getting transportation to medical appointments?: No Do you have trouble paying your heating and electricity bill?: No Do you have trouble taking care of your child, family member or friend?: No Do you have trouble with day-to-day activities such as bathing, preparing meals, shopping, managing finances, etc.?: No Are you currently unemployed and looking for a job?: No Are you interested in more education?: No THRIVE Score: 0 AUDIT C Alcohol Use Questionnaire (AUDIT-C) 1. How often do you have a drink containing alcohol?: Never 3. How often do you have six or more drinks on one occasion?: Never Total Score: 0 NADER-7 AMB Questionnaire NADER-7 Date NADER - 7 assessed: 08/23/24 Feeling nervous, anxious, or on edge: 0 = Not at all Not being able to stop or control worryin = Not at all Worrying too much about different things: 0 = Not at all Trouble relaxin = Not at all Being so restless that it is hard to sit still: 0 = Not at all Becoming easily annoyed or irritable: 0 = Not at all Feeling afraid as if something awful might happen: 0 = Not at all Total NADER-7 score (0-4 normal; 5-9 mild; 10-14 moderate; 15-21 severe): 0 Source: Developed by Drs. Rick Vega, Ave Christy, Chris Villalba and colleagues, with an educational nilo from [employer]. Physical exam (Primary Care) Vital Signs: Last Vital Signs Temp 97.7 F 08/23/24 14:39 Pulse 96 08/23/24 14:39 BP 134/80 08/23/24 14:39 Pulse Ox 96 08/23/24 14:39 Oxygen Delivery Method Room Air 08/23/24 14:39 BMI result Body Mass Index 22.3 Tobacco/Smoking Status: Tobacco use Status Tobacco use date assessed 08/23/24 08/23/24 14:03 Patient Tobacco Use Status Former Tobacco user 08/23/24 14:47 e-Cigarette/Vaping Use Former Use 08/23/24 14:47 PHQ-9: PHQ-9 Score PHQ-9: Total score 0 08/26/24 15:20 Depression Screening Interpretation: Negative Thrive Assessment: Date of Thrive Assessment Date Thrive assessed 08/23/24 08/23/24 14:03 Coding Level of Care Code New Pt Level 4 (55650) Complex EM visit Add On G2211 Diagnoses Primary hypertension I10 Hypertension type: primary hypertension Anxiety F41.9 Rib pain on right side R07.81 Additional Codes PHQ-9 - 70177 - PHQ-9 Billing: Yes ([id number]) Assessment & Plan Assessment & Plan (1) HTN (hypertension): Code(s): I10 - Essential (primary) hypertension Category: Medical Qualifiers: Hypertension type: primary hypertension Qualified Code(s): I10 - Essential (primary) hypertension (2) Anxiety: Code(s): F41.9 - Anxiety disorder, unspecified Category: Medical (3) Rib pain on right side: Code(s): R07.81 - Pleurodynia Category: Medical Plan 74 y/o to establish care past medical, surgical, social reviewed Rib pain in setting of osteoporosis-xray ordered HTN-on lisinopril Anxiety-controlled on current medications Orders: Orders XR ribs RT 2V 08/23/24 R07.81 - Pleurodynia Lipid Panel 08/23/24 F41.9 - Anxiety disorder, unspecified, I10 - Essential (primary) hypertension, Z01.84 - Encounter for antibody response examination Varicella IgG Antibody 08/23/24 F41.9 - Anxiety disorder, unspecified, I10 - Essential (primary) hypertension, Z01.84 - Encounter for antibody response examination Comprehensive Met. Panel 08/23/24 F41.9 - Anxiety disorder, unspecified, I10 - Essential (primary) hypertension, Z01.84 - Encounter for antibody response examination Complete Blood Count Auto Diff 08/23/24 F41.9 - Anxiety disorder, unspecified, I10 - Essential (primary) hypertension, Z01.84 - Encounter for antibody response examination Referrals Cologuard Test Z12.11 - Encounter for screening for malignant neoplasm of colon, Z12.12 - Encounter for screening for malignant neoplasm of rectum Medications: New diazepam 5 mg PO BEDTIME PRN 30 tabs 3RF sleep
[2024-08-23 14:39] VITALS: BP 134/80; PULSE 96; TEMP 36.5; O2SAT 96; BMI 22.3
--- OUTSIDE RECORDS SUMMARY | 2024-08-23 15:19 | XMS_ITS | Clinical Summary ---
Author Organization [facility] Address [address] [place] [address] Care Team Providers Care Flash Designer Name Role Phone Nathen Dasilva MD Primary Care Provider [phone] Allergies Active Allergy Reactions Criticality Noted Date [...] [employer]BS FEE FOR SERVICE MEDICARE Care Teams Flash Designer Relationship Specialty Start Date End Date Nathen Dasilva MD [address] [place] [address] [place] [address] PCP - General Internal Medicine 08/12/14
== END 2024-08-23 15:29 | disposition home or self-care (01) ==
LOC: HO.HMCHD 14:35
PROVIDERS: PCP Internal Medicine; Visit Provider Internal Medicine
DX: I10 Essential (primary) hypertension (principal); F41.9 Anxiety disorder, unspecified; R07.81 Pleurodynia

== ENCOUNTER → 2024-08-23 14:34 | Outpatient (BNVA) | payer MEDICARE, SELFPAY | PROVIDERS: PCP Internal Medicine; Visit Provider Internal Medicine | DX: I10 Essential (primary) hypertension (principal); F41.9 Anxiety disorder, unspecified; R07.81 Pleurodynia; M81.0 Age-related osteoporosis without current pathological fracture; E78.5 Hyperlipidemia, unspecified; Z79.899 Other long term (current) drug therapy | CPT/HCPCS: 96127; 99202 ==

== ENCOUNTER 2025-01-10 13:07 | Outpatient (AMB) | payer MEDICARE, SELFPAY ==
--- OUTSIDE RECORDS SUMMARY | 2025-01-09 04:42 | XMS_ITS | Encounter Summary ---
Author Organization [facility] Address [address] [place] [address] [place] [id number] Phone Care Team Providers Care Field Support Rep Name Role Phone Nathen Dasilva MD Primary Care Provider Reason for Visit * Reason Comments Chest Pain Encounter Details Date Type Department Care Team (Late st Contact Info) Description 01/09/2025 4:42 AM EDT - 01/09/2025 7:43 AM EDT Emergency [facility] [address] [place] [address] Lisset Givens MD [address] [place] [id number] Chele Calvert MD [address] [place] [id number] Discharge Disposition: Home or Self Care Social History Tobacco Use Types Packs/Day Years Used Date Smoking Tobacco: Former Cigarettes Q uit: 1974 Smokeless Tobacco: Never Alcohol Use Standard Drinks/Week Comments Never 0 (1 standard drink = 0.6 oz pur e alcohol) Child or Family Care Answer Date Record ed Do you have problems with on e of the following making it difficult for you to work, study, or receive health care? No 08/28/2020 Education Answer Date Recorded Are you interested in more education? Not on siobhan e 08/29/2022 Are you concerned about learning? Not on file 08/29/2022 No 08/29/2022 No 08/29/2022 Food Answer Date Recorded Within the past 6 months we worried whether our food would run out before we got money to buy more. Never True 01/09/2025 Within the past 6 months the food we bought just didn't last and we didn't have enough money to get more. Never True Residential Stability Answer Date Recor ded What is your housing situation today? I have jun sing 01/09/2025 How many times have you move d in the past 12 months? Zero (I did not move) 01/09/2025 Paying for Meds Answer Date Recorded Do you have trouble paying for medicines? No 01/09/2025 Paying Utility Bills Answer Date Record ed Do you have trouble paying your heating or elect ricity bill? No 01/09/2025 Transportation Answer Date Recorded Has the lack of transportati on kept you from medical appointments or from getting medications? No 01/09/2025 Unemployment Answer Date Recorded Are you currently unemployed or working on a part-time or temporary basis, and looking for work? No 08/28/2020 Digital Access Answer Date Recorded No 01/09/2025 Yes 01/09/2025 Do you have reliable internet access at home? Ye s 01/09/2025 Do you have a device (e.g., phone, tablet, computer) with a working camera? Yes 01/09/2025 Intimate Partner Violence Answer Date R ecorded Are you denied basic needs s uch as food, clothing, or medical care? No 01/09/2025 In the past 12 months have y ou been in a relationship with a person who hurts, threatens, or tries to control you? No 01/09/2025 Are you denied basic needs s uch as food, clothing, or medical care? No 01/09/2025 In the past 12 months have y ou been in a relationship with a person who hurts, threatens, or tries to control you? No 01/09/2025 Comments No Sex and Gender Information Value Date Recorded Sex Assigned at Female 10/05/2017 7:58 PM EDT Legal Sex Female 5:56 PM EST Gender Identity Female 10/05/2017 7:58 PM EDT Sexual Orientation Straight 10/05/2017 7: 58 PM EDT documented as of this encounter Last Filed Vital Signs Vital Sign Reading Time Taken Comments Blood Pressure 167/68 01/09/2025 5:00 AM EDT Pulse 86 01/09/2025 7:40 AM EDT Temperature 36.6 C (97.9 F) 01/09/2025 4:46 AM EDT Respiratory Rate 18 01/09/2025 7:40 AM EDT Oxygen Saturation 97% 01/09/2025 7:40 AM EDT Inhaled Oxygen Concentration - - Weight - - Height - - Body Mass Index - - documented in this encounter Functional Status * Calculated C-SSRS Risk Score (Lifetime/Recent) Answer Date of Assessment Author No Risk Indicated 01/09/2025 4:49 AM EDT Emy Sweet RN * [place] Suicide Severity Rating Scale (Screener/Recent Self-Report) Question Answer Date of Assessment Author 1. Wish to be (Past 1 Month) No 01/09/2025 4:49 AM EDT Emy Diaz RN 2. Non-Specific Active Suicidal Thoughts (Past 1 Month) No 01/09/2025 4:49 AM EDT Emy Diaz RN 6. Suicidal Behavior (Lifetime) No 01/09/2025 4:49 AM EDT Emy Diaz RN documented as of this encounter Discharge Instructions * Discharge Instructions* Chele Calvert MD - 01/09/2025 7:21 AM EDT Your physical exam, EKG and tests for emergent causes of chest discomfort was reassuring. The testswe can run in the Emergency Department did not find the cause of your chest discomfort. It is stillpossible that something serious is causing your discomfort. You may need more testing as an outpatient if your symptoms continue -- please discuss this with your primary care provider. Please call your primary care physician to schedule an appointment within the next week. You may participate in your usual activities as tolerated. Pay attention to anything that seems to make your symptoms better or worse. Consider a soft, bland diet or even try taking an [id number] antacid like Pepcid forthe next 2 weeks as the digestive system if a common cause of chest discomfort. Return to the emergency department if your chest discomfort gets worse or you start to have new symptoms that concern you. documented in this encounter Medications at Time of Discharge calcium-vits O1-J-Z9-minerals 166.75 mg- 166.75 unit Cap Take by mouth. Bone Density with Vitamin k cholecalciferol, vitamin D3, 1,000 unit capsule Take 3,000 Units by mouth daily. diazePAM (VALIUM) 5 MG tablet as needed. prn 02/18/2022 lisinopril (PRINIVIL,ZESTRIL ) 5 MG tablet Take 5 mg by mouth nightly at bedtime. loratadine (CLARITIN) 10 mg tablet Take 10 mg by mouth daily as needed. 5 12/08/2018 omega 1-yeh-azp-fish oil 1,000 mg (120 mg-180 mg) Cap VITAMIN B COMPLEX ORAL Take by mouth. documented as of this encounter Progress Notes * Martha Yanez RN - 01/09/2025 4:59 AM EDT Nursing Progress Note Provider at bedside. documented in this encounter ED Notes * Jessica Monroe RN - 01/09/2025 7:43 AM EDT ED Discharge Nursing Note Went over d/c instructions with patient at bedside. In agreement with POC. Able to ambulate safely with steady gait OOB * Chele Calvert MD - 01/09/2025 7:21 AM EDT I assumed care of the patient at shift change around 6:30 AM. Briefly, she was having chest pain and was in the midst of ACS rule out. Repeat troponin was normal. Per plan with off going provider, patient was discharged home. I updated patient on results she is agreeable with the plan. Patient/in home caregiver was educated on anticipated clinical course, self-care instructions including medications, and emergency department return precautions. The patient was instructed to follow up primary care. All questions were answered. * Martha Yanez RN - 01/09/2025 5:35 AM EDT ED Nursing Progress Note Pt with c/o 10 cp to left chest wall@rest initially reported as sharp,which is now aching.Denies radiating, arm, or jaw involvement.Also no pain with inspiration or change with leaning forward. * Emy Diaz RN - 01/09/2025 4:44 AM EDT Patient comes in with left sided chest pain. Woke her up from sleep. Has been sick fro three days. Pain at its worse was a 10 and now it is at a two. Also endorsing stomach pain and diarrhea. Was finally able to eat yesterday. * Lisset Givens MD - 01/09/2025 4:38 AM EDT Chief Complaint Chief Complaint Patient presents with Chest Pain History of Present Illness The patient, Nicole Osborn,is a 74 y.o. female who presents for evaluation of Chest Pain The patient reports for evaluation of chest pain that woke her from sleep. Patient reports pain lasted for a few seconds and then resolving. Denies any associated shortness of breath. Denies cough, fever, leg swelling or recent travel. She does tell me she had some lower abdominal cramping over thepast 2 days and an episode of diarrhea which has since resolved. She denies history of prior abdominal surgeries. She has a history of hypertension. Denies history of diabetes or hypercholesterolemia. She does not smoke cigarettes. Unless otherwise specified, I have reviewed and agree with the triage and nursing notes. ROS A ten point review of systems was negative except what was noted in the HPI. Review of Systems Past Medical History Past Medical History: Diagnosis Date Anxiety mild Arthritis Asthma mild Disla's cyst Fibromyalgia [place] of [place] [facility] [place] [facility] [place] Hypertensive disorder Past Surgical History Past Surgical History: Procedure Laterality Date BREAST LUMPECTOMY Left DILATION AND CURETTAGE OF UTERUS KNEE SURGERY TONSILLECTOMY Home Medications Prior to Admission medications Medication Sig calcium-vits H6-D-I0-minerals 166.75 mg- 166.75 unit Cap Oral, Bone Density with Vitamin k cholecalciferol, vitamin D3, 1,000 unit capsule 3,000 Units, Oral, Daily diazePAM (VALIUM) 5 MG tablet As needed, prn lisinopril (PRINIVIL,ZESTRIL) 5 MG tablet 5 mg, Oral, Nightly loratadine (CLARITIN) 10 mg tablet 10 mg, Oral, Daily as needed omega 0-xku-thj-fish oil 1,000 mg (120 mg-180 mg) Cap No dose, route, or frequency recorded. VITAMIN B COMPLEX ORAL Oral Allergies Allergies Allergen Reactions Morphine Talwin [Pentazocine Lactate] Other (See Comments) Outer Body Experience Latex, Natural Rubber Rash Social and Family History Social History Tobacco Use Smoking status: Former Current packs/day: 0.00 Types: Cigarettes Quit date: 1973 Years since quittin.7 Smokeless tobacco: Never Substance Use Topics Alcohol use: Never Social History Substance and Sexual Activity Drug Use Never Family History Adopted: Yes Problem Relation Age of Onset Meningitis Son Hodgkins lymphoma Son Cognitive disability Son Physical Exam Vital Signs: ED Triage Vitals [01/09/25 0446] Encounter Vitals Group BP (!) 162/74 Systolic BP Percentile Diastolic BP Percentile Heart Rate 99 Respiratory Rate 20 Temperature 36.6 ??C (97.9 ??F) Temp src SpO2 99 % Weight Height Head Circumference Peak Flow Pain Score Pain Loc Pain Education Exclude from Growth Chart Physical Exam Vitals and nursing note reviewed. Constitutional: General: She is not in acute distress. HENT: Head: Normocephalic and atraumatic. Eyes: Extraocular Movements: Extraocular movements intact. Pupils: Pupils are equal, round, and reactive to light. Cardiovascular: Rate and Rhythm: Normal rate and regular rhythm. Pulses: Normal pulses. Pulmonary: Effort: Pulmonary effort is normal. No respiratory distress. Breath sounds: Normal breath sounds. Abdominal: General: There is no distension. Palpations: Abdomen is soft. Tenderness: There is no abdominal tenderness. Musculoskeletal: Cervical back: Neck supple. No tenderness. Right lower leg: No edema. Left lower leg: No edema. Skin: General: Skin is warm and dry. Findings: No rash. Neurological: General: No focal deficit present. Mental Status: She is alert and oriented to person, place, and time. Sensory: No sensory deficit. Motor: No weakness. Psychiatric: Mood and Affect: Mood normal. Behavior: Behavior normal. Laboratory Testing Results for orders placed or performed during the hospital encounter of 01/09/25 COVID Pandemic Respiratory Viral Order (PRO) Specimen: Nasopharyngeal swab; Other Result Value Ref Range Test Ordered Rapid COVID has been ordered Specimen Source/Description PENDING SARS-CoV 2 (COVID-19) PCR PENDING Not Detected Troponin Specimen: Blood Result Value Ref Range Troponin-T, HS Gen5 9 0 - 9 ng/L Lipase Specimen: Blood Result Value Ref Range LIPASE 32 16 - 63 U/L Magnesium Specimen: Blood Result Value Ref Range MAGNESIUM 2.0 1.6 - 2.6 mg/dL LFTs (hepatic panel) Specimen: Blood Result Value Ref Range ALKALINE PHOSPHATASE 80 39 - 117 U/L TOTAL BILIRUBIN 0.5 0.0 - 1.2 mg/dL DIRECT BILIRUBIN 0.1 0.0 - 0.2 mg/dL Bilirubin (Indirect) NOT CALCULATED 0 - 1.5 mg/dL AST 14 0 - 37 U/L ALT 8 0 - 40 U/L TOTAL PROTEIN 7.2 6.5 - 8.0 g/dL ALBUMIN 3.8 (L) 3.9 - 4.8 g/dL GLOBULIN 3.4 1 - 4.8 g/dL A/G Ratio 1.12 1.00 - 4.80 RATIO Basic metabolic panel Specimen: Blood Result Value Ref Range SODIUM 132 (L) 133 - 146 mmol/L CHLORIDE 97 96 - 108 mmol/L POTASSIUM 3.6 3.3 - 5.1 mmol/L CO2 23 21 - 35 mmol/L BUN 15 6 - 19 mg/dL CREATININE 0.70 0.5 - 1.5 mg/dL GLUCOSE 104 (H) 70 - 99 mg/dL CALCIUM 9.4 8.4 - 10.3 mg/dL EGFR 90 >59 mL/min/1.73m2 ANION GAP 16 10 - 20 mmol/L CBC and differential Specimen: Blood Result Value Ref Range WBC 7.78 4.00 - 11.00 K/uL RBC 4.51 4.00 - 5.20 M/uL HGB 13.9 12.0 - 16.0 g/dL HCT 42.6 36.0 - 46.0 % PLT 189 150 - 450 K/uL MCV 94.5 80.0 - 100.0 fL MCH 30.8 27.0 - 31.0 pg MCHC 32.6 32.0 - 36.0 g/dL RDW 12.7 11.5 - 14.5 % MPV 10.6 8.4 - 12.0 fL NRBC 0.00 0.00 /100 WBCs ABSOLUTE NRBC 0.00 0.00 K/uL DIFF METHOD Auto NEUTS 65.2 48.0 - 76.0 % LYMPHS 23.8 18.0 - 41.0 % MONOS 8.9 4.0 - 11.0 % EOS 1.2 0.0 - 5.0 % BASOS 0.4 0.0 - 1.5 % Granulocytes, immature (%) 0.5 0.0 - 0.9 % ABSOLUTE NEUTS 5.08 1.92 - 7.60 K/uL ABSOLUTE LYMPHS 1.85 0.72 - 4.10 K/uL ABSOLUTE MONOS 0.69 0.16 - 1.10 K/uL ABSOLUTE EOS 0.09 0.00 - 0.50 K/uL ABSOLUTE BASOS 0.03 0.00 - 0.15 K/uL Granulocytes, immature 0.04 0.00 - 0.09 K/uL Radiology Testing No orders to display MDM Assessment and Plan: Patient presents with chest pain now resolved. EKG without ischemia or arrhythmia. Labs thus far with negative first troponin. Reported abdominal pain and diarrhea that resolved over the last few days. Belly labs are overall reassuring, no evidence of infection, anemia, organ dysfunction or electrolyte derangement. Delta troponin and COVID swab pending at time of shift change. Care will be signedout pending completion of diagnostics, anticipate discharge home. Category 1: Tests, Studies or Independent Historians: Independent Historian: Independent history was obtained by spouse/partner. Spouse at bedside. Category 2 and 3: Independent Interpretation of Tests, Consideration of Tests, or External Discussion of Results: ECG: EKG studies were independently interpreted. Other: My EKG Interpretation (4:48): Normal sinus rhythm at 91bpm, no interval abnormalities, no STEMI Clinical Impressions as of 01/09/25 0615 Chest pain, unspecified type Critical Care Time: 0 minutes Clinical Impression Diagnosis Description Comment Final diagnosis Chest pain, unspecified type Chest pain, unspecified type -- Disposition: Home Lisset Givens MD 01/09/25 0616 documented in this encounter Plan of Treatment Upcoming Encounters Date Type Department Care Team (Late st Contact Info) Description 05/27/2025 3:00 PM EST Office Visit [facility] Medicine [address] [place] [address] [place] [address] Berkley Garibay [address] [facility] [place] [address] [email or web address] documented as of this encounter Procedures Procedure Name Priority Date/Time Associated Diagnosis Comments TROPONIN STAT 01/09/2025 6:38 AM EDT LFTS (HEPATIC PANEL) STAT 01/09/2025 5:30 AM EDT CBC AND DIFFERENTIAL STAT 01/09/2025 5:30 AM EDT TROPONIN STAT 01/09/2025 5:30 AM EDT MAGNESIUM STAT 01/09/2025 5:30 AM EDT LIPASE STAT 01/09/2025 5:30 AM EDT BASIC METABOLIC PANEL STAT 01/09/2025 5:30 AM EDT URINALYSIS W/REFLEX URINE CULTURE STAT 01/09/2025 5:05 AM EDT COVID PANDEMIC RESPIRATORY VIRAL ORDER (PRO) STAT 01/09/2025 5:05 AM EDT ECG 12-LEAD STAT 01/09/2025 4:48 AM EDT documented in this encounter Results * (ABNORMAL) Troponin (01/09/2025 6:38 AM EDT) Troponin-T, HS Gen5 11(H) 0 - 9 ng/L [facility] Blood 01/09/2025 6:38 AM EDT 01/09/2025 6:51 AM EDT us Lisset Givens MD LAB BLOOD ORDERABLES Final R esult Performing Organization Address City/[facility]/ZIP Co de Phone Number [address] [address] * Troponin (01/09/2025 5:30 AM EDT) Troponin-T, HS Gen5 9 0 - 9 ng/L [facility] Blood 01/09/2025 5:30 AM EDT 01/09/2025 5:39 AM EDT Lisset Givens MD LAB BLOOD ORDERABLES Final R esult Performing Organization Address City/[facility]/ZIP Co de Phone Number [address] [address] * Lipase (01/09/2025 5:30 AM EDT) LIPASE 32 16 - 63 U/L [facility] Blood 01/09/2025 5:30 AM EDT 01/09/2025 5:39 AM EDT us Lisset Givens MD LAB BLOOD ORDERABLES Final R esult Performing Organization Address City/[facility]/ZIP Co de Phone Number [address] [address] * Magnesium (01/09/2025 5:30 AM EDT) Pathologist [facility] MAGNESIUM 2.0 1.6 - 2.6 mg/dL [facility] Blood 01/09/2025 5:30 AM EDT 01/09/2025 5:39 AM EDT Lisset Givens MD LAB BLOOD ORDERABLES Final R esult Performing Organization Address City/[facility]/ZIP Co de Phone Number [address] [address] * (ABNORMAL) LFTs (hepatic panel) (01/09/2025 5:30 AM EDT) [facility] ALKALINE PHOSPHATASE 80 39 - 117 U/L [facility] TOTAL BILIRUBIN 0.5 0.0 - 1.2 mg/dL [facility] DIRECT BILIRUBIN 0.1 0.0 - 0.2 mg/dL [facility] Bilirubin (Indirect) NOT CALCULATED 0 - 1.5 mg/dL [facility] AST 14 0 - 37 U/L [facility] ALT 8 0 - 40 U/L [facility] TOTAL PROTEIN 7.2 6.5 - 8.0 g/dL [facility] ALBUMIN 3.8(L) 3.9 - 4.8 g/dL [facility] GLOBULIN 3.4 1 - 4.8 g/dL [facility] A/G Ratio 1.12 1.00 - 4.80 RATIO [facility] Blood 01/09/2025 5:30 AM EDT 01/09/2025 5:39 AM EDT Lisset Givens MD LAB BLOOD ORDERABLES Final R esult [address] [address] * (ABNORMAL) Basic metabolic panel (01/09/2025 5:30 AM EDT) Pathologist [facility] SODIUM 132(L) 133 - 146 mmol/L [facility] CHLORIDE 97 96 - 108 mmol/L [facility] POTASSIUM 3.6 3.3 - 5.1 mmol/L [facility] CO2 23 21 - 35 mmol/L [facility] BUN 15 6 - 19 mg/dL [facility] CREATININE 0.70 0.5 - 1.5 mg/dL [facility] GLUCOSE 104(H) 70 - 99 mg/dL [facility] CALCIUM 9.4 8.4 - 10.3 mg/dL [facility] EGFR 90 >59 mL/min/1.7 3m2 [facility] Comment:Estimated glomerular filtration rate calculated using the CKD-EPI refit equation. ANION GAP 16 10 - 20 mmol/L [facility] Blood 01/09/2025 5:30 AM EDT 01/09/2025 5:39 AM EDT us Lisset Givens MD LAB BLOOD ORDERABLES Final R esult Performing Organization Address City/State/[facility] Co de Phone Number [address] [address] * CBC and differential (01/09/2025 5:30 AM EDT) WBC 7.78 4.00 - 11.00 K/uL [facility] RBC 4.51 4.00 - 5.20 M/uL [facility] HGB 13.9 12.0 - 16.0 g/dL [facility] HCT 42.6 36.0 - 46.0 % [facility] PLT 189 150 - 450 K/uL [facility] MCV 94.5 80.0 - 100.0 fL [facility] MCH 30.8 27.0 - 31.0 pg [facility] MCHC 32.6 32.0 - 36.0 g/dL [facility] RDW 12.7 11.5 - 14.5 % [facility] MPV 10.6 8.4 - 12.0 fL [facility] NRBC 0.00 0.00 /100 WBCs [facility] ABSOLUTE NRBC 0.00 0.00 K/uL [facility] DIFF METHOD Auto [facility] NEUTS 65.2 48.0 - 76.0 % [facility] LYMPHS 23.8 18.0 - 41.0 % [facility] MONOS 8.9 4.0 - 11.0 % [facility] EOS 1.2 0.0 - 5.0 % [facility] BASOS 0.4 0.0 - 1.5 % [facility] Granulocytes, immature (%) 0.5 0.0 - 0.9 % [facility] ABSOLUTE NEUTS 5.08 1.92 - 7.60 K/uL [facility] ABSOLUTE LYMPHS 1.85 0.72 - 4.10 K/uL [facility] ABSOLUTE MONOS 0.69 0.16 - 1.10 K/uL [facility] ABSOLUTE EOS 0.09 0.00 - 0.50 K/uL [facility] ABSOLUTE BASOS 0.03 0.00 - 0.15 K/uL [facility] Granulocytes, immature 0.04 0.00 - 0.09 K/uL [facility] Blood 01/09/2025 5:30 AM EDT 01/09/2025 5:39 AM EDT us Lisset Givens MD LAB BLOOD ORDERABLES Final R esult Performing Organization Address City/[facility] Co de Phone Number [address] [address] * COVID Pandemic Respiratory Viral Order (PRO) (01/09/2025 5:05 AM EDT) Test Ordered Rapid COVID has been ordered [facility] Specimen Source/Description NASAL [facility] SARS-CoV 2 (COVID-19) PCR Not Detected Not Detected [facility] Comment: SARS-CoV-2 not detected Negative results do not preclude SARS-CoV-2 infection and should not be used as the sole basis for patient management decisions. Negative results must be combined with clinical observations, patient history, and epidemiological information. Other (Nasopharyngeal swab) 01/09/2025 5:05 AM EDT 01/09/2025 5:37 AM EDT us Lisset Givens MD BODY FLUIDS AND STOOLS ORDER SUSAN Final Result Performing Organization Address [facility] Co de Phone Number [address] [address] * (ABNORMAL) Urinalysis w/reflex Urine Culture (01/09/2025 5:05 AM EDT) COLOR Yellow Yellow [facility] CLARITY Clear [facility] GLUCOSE Negative Negative [facility] BILI 1+(A) Negative [facility] KETONES 1+(A) Negative [facility] SPECIFIC GRAVITY 1.025 1.005 - 1.030 [facility] BLOOD Negative Negative [facility] PH 6.0 5.0 - 8.0 [facility] Protein-UA Trace(A) Negative [facility] NITRITE Negative Negative [facility] Leukocyte esterase, ur Negative Negative [facility] Urine (Urine) 01/09/2025 5:0 5 AM EDT 01/09/2025 5:37 AM EDT us Lisset Givens MD URINE ORDERABLES Final Resul t [address] [address] * ECG 12-LEAD (01/09/2025 4:48 AM EDT) Ventricular Rate EKG/MIN 91 BPM [facility] Atrial Rate 91 BPM [facility] CA Interval 130 ms [facility] QRS Duration 80 ms [facility] QT Interval 364 ms [facility] QTC Interval 447 ms [facility] P [place] 86 degrees [facility] R Wave [place] 38 degrees [facility] T Wave [place] 59 degrees [facility] 01/09/2025 4:48 AM EDT 01/09/2025 2:39 PM EDT Narrative [facility] - 01/09/2025 2:39 PM EDT Normal sinus rhythm Normal ECG When compared with ECG of 11-May-2011 01:26, No significant change was found Confirmed by Miguel Angel Pena ([id number]) on 01/09/2025 2:39:40 PM us Lisset Givens MD ECG ORDERABLES Final Result [facility] documented in this encounter Visit Diagnoses Diagnosis Chest pain, unspecified type- Primary documented in this encounter Additional Health Concerns Infection Onset Date Last Indicated Resolved Time CoV-Risk 01/09/2025 01/09/2025 Assessment Noted Time PHQ-2 Depression Total Score: 2 08/29/19 10:12 AM EDT documented as of this encounter Care Teams Field Support Rep Relationship Specialty Start Date End Date Nathen Dasilva MD [address] [place] [address] [place] [address] PCP - General Internal Medicine 09/24/20 documented as of this encounter Additional Source Comments The information contained in this document represents components of the legal health record. It is not the complete legal health record.[facility]
--- NOTE | 2025-01-10 08:29 | A.OFFPC_ITS ---
Vital Signs 01/10/25 08:30 Height 5 ft 5 in Weight 128 lb BMI 21.3 BP 138/82 Blood Pressure Location Lt brachial Position Sitting Pulse 87 Pulse Source Pulse Oximeter Temp 97.3 F Temp Source Temporal Artery Scan Pulse Oximetry (%) 98 Oxygen Delivery Method Room Air Intake Visit Reasons: Wax build up Fuel Testing Technician Required: No Accompanied by: Self / Same As Patient Allergies latex (LATEX) Allergy (Unknown, Verified 01/10/25 08:30) ITCHING morphine Allergy (Unknown, Verified 01/10/25 08:30) hallucinations pentazocine (From TALWIN) Allergy (Unknown, Verified 01/10/25 08:30) HALLUCINAGEN Talwin Allergy (Unknown, Uncoded 07/01/23 14:09) Unknown Yellow dye Allergy (Unknown, Uncoded 07/01/23 14:09) Unknown Medication List - Last Reconciled 01/14/25 by MOE Mendez calcium-vitamin D2-soybean 500-100-28 mg-units-mg tabs PO BID celecoxib (Celebrex) 100 mg PO BID diazepam 5 mg PO BEDTIME PRN lisinopril 5 mg PO DAILY loratadine (Claritin) 10 mg PO DAILY Tobacco use date assessed: 01/10/25 Fall risk assessment: No Falls in past year Last assessed Fall Risk: 01/10/25 Dental Screening Dental Screen Date: 01/10/25 Did you have a dental visit in the last 12 months?: Yes Did you have a dental problem in the last 6 months where you did not have access to dental care?: No HPI HPI Comments History of Present Illness Details The patient is a 74-year-old female with HTN, allergic rhinitis and anxiety p resenting with multiple health concerns including earwax impaction, allergies, and weight loss. The patient has a history of costochondritis, previously managed with muscle relaxants, and fibromyalgia, for which she takes diazepam infrequently. She has been diagnosed with macular degeneration in one eye and has been advised to take supplements, though they cause nausea. She is followed by Ophthalmology The patient experiences earwax impaction, leading to itchiness, earaches, and headaches, and has been advised to have her ears flushed regularly. She would like a referral for ENT She reports new onset allergies, including intolerance to cheese and tuna, which have limited her diet, and significant weight loss since receiving COVID-19 vaccinations. Preventative care measures discussed include varicella immunity testing and colon cancer screening with Cologuard Patient was informed and verbally consented to the use of an ambient scribe for clinic note documentation during this visit. . [facility] Medical History (Updated 01/14/25 @ 03:48 by MOE Mendez) Colon cancer screening Costochondritis Food allergy HTN (hypertension) Impacted cerumen of both ears Weight loss Family History Mother No problems noted. Father No problems noted. Social History Housing: House Patient Tobacco Use Status: Former Tobacco user e-Cigarette/Vaping Use: Former Use service: No Current occupational status: retired Cognitive needs: No Hearing needs: No Vision needs: Yes (rx glasses) Questionnaire PHQ-9 Over the last 2 weeks, how often have you been bothered by any of the following problems? 1. Little interest or pleasure in doing things: not at all 2. Feeling down, depressed, or hopeless: not at all 3. Trouble falling or staying asleep, or sleeping too much: not at all 4. Feeling tired or having little energy: not at all 5. Poor appetite or overeating: not at all 6. Feeling bad about yourself - or that you are a failure or have let yourself or your family down: not at all 7. Trouble concentrating on things, such as reading the newspaper or watching television: not at all 8. Moving or speaking so slowly that other people could have noticed. Or the opposite - being so fidgety or restless that you have been moving around a lot more than usual: not at all 9. Thoughts that you would be better off or of hurting yourself in some way: not at all Total score: 0 Source: Developed by Drs. Rick Vega, Ave Christy, Chris Villalba and colleagues, with an educational nilo from [employer]. Thrive Questionnaire Date Thrive assessed: 01/10/25 I am a: Patient Within the past 12 months, did the food you bought not last and you didn't have the money to get more?: Never true Within the past 12 months, did you worry whether your food would run out before you got money to buy more?: Never true Do you have trouble paying for medicines?: No Do you have trouble getting transportation to medical appointments?: No Do you have trouble paying your heating and electricity bill?: No Do you have trouble taking care of your child, family member or friend?: No Do you have trouble with day-to-day activities such as bathing, preparing meals, shopping, managing finances, etc.?: No Are you currently unemployed and looking for a job?: No Are you interested in more education?: No THRIVE Score: 0 AUDIT C Alcohol Use Questionnaire (AUDIT-C) 1. How often do you have a drink containing alcohol?: Never 3. How often do you have six or more drinks on one occasion?: Never Total Score: 0 NADER-7 AMB Questionnaire NADER-7 Date NADER - 7 assessed: 01/10/25 Feeling nervous, anxious, or on edge: 0 = Not at all Not being able to stop or control worryin = Not at all Worrying too much about different things: 0 = Not at all Trouble relaxin = Not at all Being so restless that it is hard to sit still: 0 = Not at all Becoming easily annoyed or irritable: 0 = Not at all Feeling afraid as if something awful might happen: 0 = Not at all Total NADER-7 score (0-4 normal; 5-9 mild; 10-14 moderate; 15-21 severe): 0 Source: Developed by Drs. Rick Vega, Ave Christy, Chris Villalba and colleagues, with an educational nilo from [employer]. Review of Systems Const Details: CONSTITUTIONAL Reports significant weight loss, 6 lbs in past 4 months Reports new onset allergies to cheese and tuna HEAD/NECK Negative EAR/NOSE/MOUTH/THROAT Reports earwax impaction, itchiness, earaches, and headaches RESPIRATORY Negative CARDIOVASCULAR Reports tenderness in the chest area GASTROINTESTINAL Negative MUSCULOSKELETAL Negative NEUROLOGICAL Negative PSYCHIATRIC Negative Physical exam (Primary Care) Vital Signs: Last Vital Signs Temp 97.3 F 01/10/25 08:30 Pulse 87 01/10/25 08:30 BP 138/82 01/10/25 08:30 Pulse Ox 98 01/10/25 08:30 Oxygen Delivery Method Room Air 01/10/25 08:30 BMI result Body Mass Index 21.3 GENERAL Well developed, Well nourished, in no apparent distress HEENT Head-Normocephalic Eyes- PERRLA, EOMI, Conjuctiva clear, lids WNL Ears- Canals clear, TMs WNL Mouth/Throat-No lesions, no erythema, no exudate Neck- Supple, No lymphadenopathy, thyroid WNL RESPIRATORY Normal I:E, Clear to auscultation CARDIOVASCULAR Regular, rate and rhythm, No murmurs or rubs, chest wall tenderness on palpation GASTROINTESTINAL Soft, nontender, normal bowel sounds, no masses MUSCULOSKELETAL Back- nontender Joints- no pain swelling or deformity NEUROLOGICAL Gait normal PSYCHIATRIC Oriented to person, place and time Mood and affect WNL Appearance WNL Speech WNL Thought processes WNL Tobacco/Smoking Status: Tobacco use Status Tobacco use date assessed 01/10/25 01/10/25 08:31 Patient Tobacco Use Status Former Tobacco user 01/10/25 08:31 e-Cigarette/Vaping Use Former Use 01/10/25 08:31 PHQ-9: PHQ-9 Score PHQ-9: Total score 0 01/14/25 03:37 Thrive Assessment: Date of Thrive Assessment Date Thrive assessed 01/10/25 01/10/25 08:31 Coding Level of Care Code Established Pt Est Pt Level 4 (46055) Patient Type Established Diagnoses Food allergy Z91.018 Primary hypertension I10 Hypertension type: primary hypertension Weight loss R63.4 Impacted cerumen of both ears H61.23 Costochondritis M94.0 Time Spent (min) 35 Comment Time spent on chart review, medication reconciliation, H&P, patient education, orders Assessment & Plan Assessment & Plan (1) Food allergy: Code(s): Z91.018 - Allergy to other foods Category: Medical Plan: The patient reports new onset allergies, including intolerance to cheese and tuna, which have limited her diet. Allergy testing was discussed to identify specific allergens, and a referral to an paste thinner was planned. (2) HTN (hypertension): Comment: BP today was 138/82 Code(s): I10 - Essential (primary) hypertension Category: Medical Qualifiers: Hypertension type: primary hypertension Qualified Code(s): I10 - Essential (primary) hypertension Plan: On Lisinopril 5mg. BP contolled. Patient will continue current medications. Will monitor. Patient will follow up in 6 months. (3) Weight loss: Code(s): R63.4 - Abnormal weight loss Category: Medical Plan: The patient reports significant weight loss since receiving COVID-19 vaccinations, attributed to dietary restrictions and new allergies. A referral to a warehousing technician was considered to address dietary concerns once allergy testing is completed. (4) Impacted cerumen of both ears: Code(s): H61.23 - Impacted cerumen, bilateral Category: Medical Plan: The patient experiences earwax impaction, leading to itchiness, earaches, and headaches. She has been advised to have her ears flushed regularly and a ref erral to an ENT specialist was discussed. (5) Costochondritis: Code(s): M94.0 - Chondrocostal junction syndrome [Tietze] Category: Medical Plan: The patient has a history of costochondritis, previously managed with muscle relaxants. During the visit, the use of anti-inflammatory medications was discussed, including the potential use of Celecoxib, a SCALES-2 inhibitor, to minimize gastrointestinal side effects. The option of using topical anti-infla mmatory agents like Voltaren gel was also considered. Plan During the visit, we discussed the management of costochondritis with anti- inflammatory medications, including Celecoxib and topical Voltaren gel. We also addressed the patient's new onset allergies and planned for allergy testing and a referral to an paste thinner. The patient's significant weight loss was noted, and a referral to a warehousing technician was considered following allergy testing. Preventative care measures, including varicella immunity testing and colon cancer screening with Cologuard, were also discussed, and orders for these tests were planned. Orders: Orders Varicella IgG Antibody Today Z01.84 - Encounter for antibody response examination Referrals Allergy & Immunology Referral Z91.018 - Allergy to other foods Ear/Nose/Throat Referral H61.23 - Impacted cerumen, bilateral Cologuard Test R63.4 - Abnormal weight loss, Z12.11 - Encounter for screening for malignant neoplasm of colon Medications: New lisinopril 5 mg PO DAILY 90 tabs 1RF for blood pressure loratadine (Claritin) 10 mg PO DAILY 90 tabs 1RF for allergies celecoxib (Celebrex) with food for 5-7 days then as needed for chest wall pain 100 mg PO BID 60 caps 0RF Patient Instructions: - Follow up with ENT specialist for earwax impaction management. - Schedule allergy testing to identify specific allergens. - Await referral to a warehousing technician to address dietary concerns after allergy testing. - Complete varicella immunity testing and colon cancer screening with Cologuard as ordered.
[2025-01-10 08:30] VITALS: BP 138/82; PULSE 87; TEMP 36.3; O2SAT 98; BMI 21.3
--- OUTSIDE RECORDS SUMMARY | 2025-01-10 17:50 | XMS_ITS | Encounter Summary ---
Author Organization [facility] Address [address] [place] [address] [place] [phone] Phone Care Team Providers Care Police Department Secretary Name Role Phone Nathen Dasilva MD Primary Care Provider Lilliam Rain PA-C Unavailable [phone] Nathen Dasilva MD Primary Care Provider Encounter Details Date Type Department Care Team (Late st Contact Info) Description 10/05/2017 Procedure Pass [facility], Ct Scan - [address] [address] Social History Tobacco Use Types Packs/Day Years Used Date Smoking Tobacco: Former Cigarettes Q uit: 1974 Smokeless Tobacco: Never Alcohol Use Standard Drinks/Week Comments No 0 (1 standard drink = 0.6 oz pur e alcohol) Comments Unknown Sex and Gender Information Value Date Recorded Sex Assigned at Female 10/05/2017 7:58 PM EDT Legal Sex Female 5:56 PM EST Gender Identity Female 10/05/2017 7:58 PM EDT Sexual Orientation Straight 10/05/2017 7: 58 PM EDT documented as of this encounter Plan of Treatment Upcoming Encounters Date Type Department Care Team (Late st Contact Info) Description 05/27/2025 3:00 PM EST Office Visit [facility] Medicine [address] [place] [address] [place] [address] Berkley Garibay [address] [place] [address], [address] [place] [address] [email or web address] documented as of this encounter Visit Diagnoses Not on filedocumented in this encounter Additional Health Concerns Infection Onset Date Last Indicated Resolved Time CoV-Exposed Comment:Recent close contact 01/30/2020 01/30/2020 02/13/2020 1:24 AM EDT CoV-Exposed Comment:Recent close contact documented in the COVID-19 PCR/PRO order 07/05/2021 07/08/2021 08/05/2021 1:21 AM E DT CoV-Risk 07/08/2021 07/08/2021 07/19/2021 1:22 AM EDT CoV-Risk 01/09/2025 01/09/2025 documented as of this encounter Care Teams Police Department Secretary Relationship Specialty Start Date End Date Nathen Dasilva MD [address] [place] [address] [place] [id number] PCP - General 01/31/17 08/27/20 Nathen Dasilva MD [address] [place] [address] [place] [id number] PCP - General Internal Medicine 09/24/20 Lilliam Rain PA-C [address] [place] [address] Historical LMR Provider 06/29/18 1 2 documented as of this encounter Additional Source Comments The information contained in this document represents components of the legal health record. It is not the complete legal health record.[facility]
--- OUTSIDE RECORDS SUMMARY | 2025-01-10 17:50 | XMS_ITS | Encounter Summary ---
Author Organization [facility] Address [address] [place] [address] [place] [phone] Phone Care Team Providers Care Food And Nutrition Services Assistant Name Role Phone Nathen Dasilva MD Primary Care Provider Encounter Details Date Type Department Care Team (Latest Contact Info) Description 12/14/2023 Ancillary Orders [facility] Orthopedics & Sports Medicine [address] [place] [address] Natalya Moore PA-C [address] [place] [address] Orthopedics & Sports Medicine, [facility] [place] [address] [email or web address] Pain in joint, shoulder region (Primary Dx) Social History Tobacco Use Types Packs/Day Years [...] before we got money to buy more. I choose not to answer 08/28/2020 Within the past 6 months the food we bought just didn't last and we didn't have enough money to get more. I choose not to answer 08/28/2020 Paying for Meds Answer Date Recorded Do you have trouble paying for medicines? No 08/28/2020 Paying Utility Bills Answer Date Record ed Do you have trouble paying your heating or elect ricity bill? No 08/28/2020 Transportation Answer Date Recorded Has the lack of transportati on kept you from medical appointments or from getting medications? No 08/28/2020 Unemployment Answer Date Recorded Are you currently unemployed or working on a part-time or temporary basis, and looking for work? No 08/28/2020 Digital Access Answer Date Recorded No 09/12/2022 No 09/12/2022 Reliable internet access at home? Not on file 09/12/2022 Device with a working camera? Not on file Intimate Partner Violence Answer Date R ecorded Are you denied basic needs s uch as food, clothing, or medical care? No 11/14/2023 In the past 12 months have y ou been in a relationship with a person who hurts, threatens, or tries to control you? No 11/14/2023 Are you denied basic needs s uch as food, clothing, or medical care? No 11/14/2023 In the past 12 months have y ou been in a relationship with a person who hurts, threatens, or tries to control you? No 11/14/2023 Comments No Sex and Gender Information Value [...] 05/27/2025 3:00 PM EST Office Visit [facility] Medicine [address] [place] [address] Berkley Garibay [address] [facility], [address] [place] [address] [email or web address] documented as of this encounter Results * XR SHOULDER 2 VIEWS (LEFT) (12/14/2023 10:01 AM EDT) Narrative SYSTEMGENERATED, DOCUMENTATION - 12/14/2023 10:01 AM EDT This image report has been auto-finalized and has not been read by a Radiologist. Interpretation has been included in the provider encounter note for this date of service. us Natalya Moore PA-C IMG XR UPPER EXTREMITY F inal Result documented in this encounter Visit Diagnoses Diagnosis Pain in joint, shoulder region Pain in joint, shoulder region- Primary documented in this encounter Additional Health Concerns Infection Onset Date Last Indicated Resolved Time CoV-Risk 01/09/2025 01/09/2025 Assessment Noted Time PHQ-2 Depression Total Score: 2 08/29/19 21 10:12 AM EDT documented as of this encounter Care Teams Food And Nutrition Services Assistant Relationship Specialty Start Date End Date Nathen Dasilva MD [address] [place] [address] [place] [address] PCP - General Internal Medicine 09/24/20 documented as of this encounter Additional Source Comments The information contained in this document represents components of the legal health record. It is not the complete legal health record.[facility]
--- OUTSIDE RECORDS SUMMARY | 2025-01-10 17:50 | XMS_ITS | Clinical Summary ---
Author Organization [facility] Address [address] [facility] [address] [place] [id number] Phone Care Team Providers Care Promotions Representative Name Role Phone Nathen Dasilva MD Primary Care Provider Allergies Active Allergy Reactions Criticality Noted Date Comments Latex, Natural Rubber Rash Low 05/11/2017 Morphine 10/24/2018 Pentazocine Lactate Other (See Comments) 2017 Outer Body Experience Medications omega 4-uow-bgj-fish oil 1,000 mg (120 mg-180 mg) Cap Active lisinopril (PRINIVIL,ZESTR IL) 5 MG tablet Take 5 mg by mouth nightly at bedtime. Active cholecalciferol , vitamin D3, 1,000 unit capsule Take 3,000 Units by mouth daily. Active calcium-vits Y2-V-S0-mineral s 166.75 mg- 166.75 unit Cap Take by mouth. Bone Density with Vitamin k Active loratadine (CLARITIN) 10 mg tablet Take 10 mg by mouth daily as needed. 5 12/08/2018 Active VITAMIN B COMPLEX ORAL Take by mouth. Active diazePAM (VALIUM) 5 MG tablet as needed. prn 02/18/2022 Active Active Problems Problem Noted Date Diagnosed Date History of acute hepatitis 05/24/2022 Assessment & Plan (05/25/2022 4:59 PM EST): Most likely triggered by daily Tylenol 325 mg every 4 hours x 7 days. Educated to avoid Tylenol in favor of topical products and other nonpharmacologic measures such as alternating heat, icing and gentle exercise/chiropractic therapy etc. Pain in both feet 05/24/2022 Assessment & Plan (05/25/2022 4:57 PM EST): Well fitting, supportive shoes. Gentle, regular feet exercises after warm bath in Epsom salt or baby soap. She may benefit from topical Arnica, Biofreeze, Voltaren or capsaicin versus medicated patches such as Salonpas or IcyHot patch 2-3 times daily and if needed at bedtime Pes planus 05/24/2022 Assessment & Plan (05/25/2022 4:55 PM EST): Get arch supports into new shoe wear and start wearing gradually increasing time as tolerated. Gentle, regular feet exercises - examples with pictures and detailed instructions printed for home use. Hepatitis 02/06/2022 Assessment & Plan (02/07/2022 11:58 AM EDT): Pt presents with several days of nausea, vomiting and chills. No foraging, ingestion of raw foods, sick contacts that she is aware of. She did eat out at a [employer] restaurant and had a shrimp dish but ate the same thing as her who did not get sick. She does not drink alcohol or use other substances. There are some supplements that she takes: BC Q and Arnica. She is taking Tylenol 325 mg po q 4 hours for the last week but <4 gm/day. Level was <5. Poison control initially rec NAC which she received. LFTs improving quickly. Pt now asymptomatic. Hep A/B/C acute serologies negative. Doubt V. Vulnificus since pt not septic and recovering quickly spontaneously. - Supportive care - Monitor LFTs - Follow up pending CMV, EBV and autoimmune work-up Elevated LFTs 02/06/2022 Essential hypertension 08/28/2020 Assessment & Plan (02/07/2022 12:00 PM EDT): - Lisinopril Assessment & Plan (08/28/2020 12:47 PM EDT): Hypertensions well controlled, continue current medication. Pain of right thigh 07/02/2020 Assessment & Plan (07/08/2020 12:24 PM EDT): Due to severe pain preventing her from walking and exercising I agreed to request duplex ultrasound to make sure that she does not have DVT there and x-rays of her hip joint that may be a source of referred pain. Pain of right lower extremity 05/05/2020 Assessment & Plan (08/28/2020 12:47 PM EDT): Symptoms are consistent with right S1 radiculopathy. I will check an MRI of her spine. Unfortunately due to anxiety I do not think she will be able to tolerate a closed MRI and will see if we get adequate images from the open MRI. If she does have radiculopathy, or even if not, I think the next course of treatment would be a trial of physical therapy. If this is not effective I will refer her to physiatry for possible injection. Assessment & Plan (05/05/2020 10:21 PM EST): Joint protection, energy conservation. Gentle, regular exercise routine. Avoid falls, injuries, overuse. Keep body weight in ideal range for her height. She may benefit from topical cream such as Arnica, Biofreeze, Aspercreme versus medicated patches such as salonpas, icy hot patch 2-3 times daily and if necessary at bedtime x 3 weeks. Chronic pain of right ankle 02/06/2020 Assessment & Plan (02/09/2020 4:48 PM EDT): Avoid falls or injuries. Elevate ankle on a pillow above the heart level and apply ice pack over a towel for 10-15 minutes as needed. Well fitting, supportive shoes. Anxiety 02/06/2020 Assessment & Plan (02/07/2022 11:51 AM EDT): Patient has taken diazepam as needed in the past, this is not current according to the PDMP. - Valium PRN - Consider Zoloft and counseling instead Assessment & Plan (08/28/2020 12:48 PM EDT): Anxiety has gotten worse since she has been exercising less. Encouraged her to get back to exercising and continue meditation. It is likely that anxiety is amplifying her pain. If it is not better, we discussed the possibility adding an SSRI which she is reluctant to do but she will consider if she does not see improvement. Diazepam is a poor choice of medication due to potential for prolonged sedation, memory impairment, and falls especially as a person gets older. I encouraged her to discontinue its use. If she needs something for occasional anxiety or insomnia, a better choice would be a shorter acting benzodiazepine, but my preference would be to try and get her on an SSRI which I think will help both with her daytime anxiety as well as insomnia. Assessment & Plan (02/09/2020 4:47 PM EDT): Optimize stress management strategies such as positive imagery, gentle yoga, relaxation/meditation sessions, listening to relaxing music etc. Keep regular engagement in favorite activities and hobbies. Consider formal psychotherapy if above measures not successful. Nocturia 01/08/2020 Overview (01/08/2020): 2 nights in past month, some irritation Assessment & Plan (01/08/2020 11:00 PM EDT): Would do exam to check for cystocoele, may benefit from vaginal E2 if this becomes more common Also check UA prn Right calf pain 09/20/2019 Assessment & Plan (09/22/2019 9:54 PM EDT): Apply warm pack, gently stretch massage in a circular motion starting from distal end toward the knee. Carefully continue topical diclofenac gel versus THC topical 2-3 times daily as needed Call if not better or worse Popliteal cyst, right 05/14/2019 Assessment & Plan (07/08/2020 12:23 PM EDT): Continue icing, resting on a pillow for 20-30 minutes every 2 hours, topical Arnica every night X 3 wks. Okay to take Tylenol 650 mg prior to bed rest. If not better or worse may need to consider aspiration & intra-articular steroid injection. She agrees with above plan but requests duplex ultrasound to make sure there are no clots present. Assessment & Plan (05/05/2020 10:18 PM EST): Continue icing, resting on a pillow for 20-30 minutes every 2 hours, topical Arnica every night X 3 wks. Okay to take Tylenol 650 mg prior to bed rest. If not better or worse may need to consider aspiration & intra-articular steroid injection. She agrees with above plan but requests duplex ultrasound to make sure there are no clots present. Assessment & Plan (08/29/2019 3:37 PM EDT): Continue icing, resting on a pillow for 20-30 minutes every 2 hours, topical Arnica every night X 3 wks. Okay to take Tylenol 650 mg prior to bed rest. If not better or worse may need to consider aspiration & intra-articular steroid injection. She agrees with above plan. Assessment & Plan (05/14/2019 8:37 PM EST): Continue icing, resting, topical Arnica and start PT with ultrasound. Since there is no erythema, no active synovial effusion detectable on exam today I suggested conservative measures. If not better or worse may need to consider aspiration & intra-articular steroid injection. She agrees with above plan. Chronic right-sided low back pain with sciatica 04/02/2019 Assessment & Plan (08/29/2019 3:38 PM EDT): Avoid falls, injuries, bending, stooping, heavy lifting. Warm pack or warm shower prior to each exercise session as educated in PT. Keep body weight in ideal range for her height. Topical cream versus patch 2-3 times daily and if necessary at bedtime. Gentle massage versus acupuncture for additional benefit. Assessment & Plan (05/14/2019 8:17 AM EST): Avoid falls, injuries, bending, stooping, heavy lifting. Warm pack or warm shower prior to each exercise session as educated in PT. Keep body weight in ideal range for her height. Topical cream versus patch 2-3 times daily and if necessary at bedtime. Gentle massage versus acupuncture for additional benefit. Assessment & Plan (04/28/2019 2:34 PM EST): Avoid falls, injuries, bending, stooping, heavy lifting. Warm pack or warm shower prior to each exercise session as educated in PT. Keep body weight in ideal range for her height. Topical cream versus patch 2-3 times daily and if necessary at bedtime. Gentle massage versus acupuncture for additional benefit. Vitamin D insufficiency 04/02/2019 Assessment & Plan (05/25/2022 4:54 PM EST): Continue daily vitamin D supplementation till the end of June 2022 to keep it in optimal range. Assessment & Plan (07/08/2020 12:23 PM EDT): Serum level requested to make sure that she does not have insufficiency. Assessment & Plan (09/22/2019 9:52 PM EDT): Continue proper supplementation to keep serum level insufficient level. Assessment & Plan (08/29/2019 3:37 PM EDT): Serum level requested to make sure that she does not require additional supplementation. She will get that test once the COVID-19 pandemia related restrictions are lifted. Assessment & Plan (05/14/2019 8:18 AM EST): Serum level requested to make sure that she does not require additional supplementation. Assessment & Plan (04/28/2019 2:33 PM EST): Serum level requested to make sure that she does not require additional supplementation. Trochanteric bursitis of right hip 04/02/2019 Assessment & Plan (05/24/2022 3:37 PM EST): Procedure: After an informed oral consent, under sterile conditions using Ethyl chloride spray for local anesthesia and I have injected 40 mg DepoMedrol and 1 cc 1% Lidocaine into Right trochanteric uneventfully. Details of post-procedure care were explained to the patient in the office and given in writing. Continue PT guided exercise routine on a regular basis. Avoid falls, injuries and overuse. Assessment & Plan (12/26/2020 5:25 PM EDT): Procedure: After an informed oral consent, under sterile conditions using Ethyl chloride spray for local anesthesia and I have injected 40 mg DepoMedrol and 1 cc 1% Lidocaine into Right trochanteric uneventfully. Details of post-procedure care were explained to the patient in the office and given in writing. Continue PT guided exercise routine on a regular basis. Avoid falls, injuries and overuse. Assessment & Plan (09/25/2020 1:26 PM EDT): Procedure: After an informed oral consent, under sterile conditions using Ethyl chloride spray for local anesthesia and I have injected 40 mg DepoMedrol and 1 cc 1% Lidocaine into Right trochanteric uneventfully. Details of post-procedure care were explained to the patient in the office and given in writing. Continue PT guided exercise routine on a regular basis. Avoid falls, injuries and overuse. Assessment & Plan (02/06/2020 11:37 AM EDT): Procedure: After an informed oral consent, under sterile conditions using Ethyl chloride spray for local anesthesia and I have injected 40 mg DepoMedrol and 1 cc 1% Lidocaine into Right trochanteric uneventfully. Details of post-procedure care were explained to the patient in the office and given in writing. Assessment & Plan (09/20/2019 2:29 PM EDT): Procedure: After an informed oral consent, under sterile conditions using Ethyl chloride spray for local anesthesia and I have injected 40 mg DepoMedrol and 1 cc 1% Lidocaine into Right trochanteric uneventfully. Details of post-procedure care were explained to the patient in the office and given in writing. Cold sensitivity 09/08/2017 Assessment & Plan (04/28/2019 2:36 PM EST): Avoid prolonged cold exposure. Dress in layers. Postmenopausal 08/03/2017 Assessment & Plan (04/28/2019 2:35 PM EST): Proper calcium and vitamin D supplementation. Fall and fracture strategies. Bone density to make sure no need for additional bone preserving therapy. Pain of left upper arm 05/12/2017 Pain in joint of left shoulder 05/12/2017 Resolved Problems Problem Noted Date Diagnosed Date Resolved Date Fibromyalgia syndrome 08/28/20202022 Assessment & Plan (02/07/2022 12:00 PM EDT): Pt peports she is using Valium for FM. Discussed: - Regular exercise program - Sleep hygiene Instead. Assessment & Plan (08/28/2020 12:45 PM EDT): We discussed the importance of sleep, healthy diet, exercise, and maintenance of good mental health. She is interested in actively engaging in all of these aspects of her care and I am hopeful that she will see some gradual improvement in her symptoms. Right leg swelling 05/05/2020 Assessment & Plan (05/05/2020 10:20 PM EST): Apply warm pack, gently stretch massage in a circular motion starting from distal end toward the knee. Carefully continue topical diclofenac gel versus THC topical 2-3 times daily as needed On her request I agreed to provide an order for duplex ultrasound to rule out intravascular clots Acute pain of right shoulder 09/08/2017 08/28/2020 Trochanteric bursitis of both hips 08/03/2017 04/02/2019 Acute pain of left knee 06/01/201708/16 Acute left ankle pain 05/12/20172020 Encounters Date Type Department Care Team Description 01/09/2025 4:42 AM EDT - 01/09/2025 7:43 AM EDT Emergency [facility] [address] [place] [address] Lisset Givens MD Daul, Adrian D, MD Discharge Disposition: Home or Self Care from Last 3 Months Immunizations Immunization Administration Dates Next Due COVID-19 (Pre-02/07) Pfizer Vaccine, mRNA, PF 08/02/2020,07/09/2020 Influenza High-Dose Quadriva lent Preservative Free IM 02/08/2022(Deferred: Patient Refused) Influenza Quadrivalent Prese rvative Free IM 01/26/2021,02/21/2020 Family History * Patient is adopted Medical History Relation Comments Cognitive disability Son Hodgkins lymphoma Son Meningitis Son Relation Status Comments Father Mother Son Social History Tobacco Use Types Packs/Day Years Used Date Smoking Tobacco: Former Cigarettes Q uit: 1973 Smokeless Tobacco: Never Tobacco Cessation:Counseling Given: Not Answered Alcohol Use Standard Drinks/Week Comments Never 0 [...] Orientation Straight 10/05/2017 7: 58 PM EDT Last Filed Vital Signs Vital Sign Reading Time Taken Comments Blood Pressure 167/68 01/09/2025 5:00 AM EDT Pulse 86 01/09/2025 7:40 AM EDT Temperature 36.6 C (97.9 F) 01/09/2025 4:46 AM EDT Respiratory Rate 18 01/09/2025 7:40 AM EDT Oxygen Saturation 97% 01/09/2025 7:40 AM EDT Inhaled Oxygen Concentration - - Weight 64.4 kg (141 lb 15.6 oz) 11/14/2023 2:54 PM EDT Height 167.6 cm (5' 5.98 ) 11/14/2023 2:54 PM ED T Body Mass Index 22.93 11/14/2023 2:54 PM EDT Plan of Treatment Upcoming Encounters Date Type Department Care Team (Late st Contact Info) Description 05/27/2025 3:00 PM EST Office Visit [facility] Medicine [address] [place] [address] [place] [address] Berkley Garibay [address] [facility], [address] [place] [address] [email or web address] Health Maintenance Due Date Last Done Comments Adult Td,Tdap Booster 1950 LIPID PANEL 1950 HEPATITIS A VACCINES (1 of 2 - Risk 2-dose series) 1967 PNEUMOCOCCAL VACCINES (50+ years) (1 of 2 - PCV) 1967 ZOSTER VACCINES (1 of 2) 1998 OSTEOPOROSIS SCREENING INITIAL (ONE-TIME) 2013 DEPRESSION SCREENING 08/28/2021 08/28/2020 RSV VACCINE (1 - 1-dose 75+ series) 2023 BLOOD PRESSURE 08/07/2023 02/05/2023 INFLUENZA VACCINE (#1) 2024 , 01/26/2021, 02/21/2020 COVID-19 VACCINE ( season) 2024 01/21/2022, 02/13/2021, 08/02/2020, Additional history exists SMOKING Hx and SMOKELESS TOBACCO SCREENING 01/10/2025 01/11/2024 CREATININE LEVEL 01/09/2026 01/09/2025, , 02/07/2022, Additional history exists POTASSIUM LEVEL 01/09/2026 01/09/2025, 01/17, 02/07/2022, Additional history exists HEPATITIS C SCREENING Completed 02/07/2022 HIB VACCINES Aged Out No longer eligi ble based on patient's age to complete this topic MENINGOCOCCAL VACCINES (ACWY) Aged Out No longer eligible based on patient's age to complete this topic MENINGOCOCCAL VACCINES (B) Aged Out N o longer eligible based on patient's age to complete this topic Medical Devices Not on file Procedures Procedure Name Priority Date/Time Associated Diagnosis Comments TROPONIN STAT 01/09/2025 6:38 AM EDT TROPONIN STAT 01/09/2025 5:30 AM EDT LIPASE STAT 01/09/2025 5:30 AM EDT MAGNESIUM STAT 01/09/2025 5:30 AM EDT LFTS (HEPATIC PANEL) STAT 01/09/2025 5:30 AM EDT BASIC METABOLIC PANEL STAT 01/09/2025 5:30 AM EDT CBC AND DIFFERENTIAL STAT 01/09/2025 5:30 AM EDT COVID PANDEMIC RESPIRATORY VIRAL ORDER (PRO) STAT 01/09/2025 5:05 AM EDT URINALYSIS W/REFLEX URINE CULTURE STAT 01/09/2025 5:05 AM EDT ECG 12-LEAD STAT 01/09/2025 4:48 AM EDT HEPATITIS C ANTIBODY, QUALITATIVE Routine 02/07/2022 6:55 AM EDT from Last 3 Months or Most Recently Relevant to Health Maintenance Results * (ABNORMAL) Troponin (01/09/2025 6:38 AM EDT) Only the most recent of2 resultswithin the time period is included. Pathologist [facility] Troponin-T, HS Gen5 11(H) 0 - 9 ng/L [facility] Blood 01/09/2025 6:38 AM EDT 01/09/2025 6:51 AM EDT us Lisset Givens MD LAB BLOOD ORDERABLES Final R esult [address] [id number] * (ABNORMAL) LFTs (hepatic panel) (01/09/2025 5:30 AM EDT) ALKALINE PHOSPHATASE 80 39 - 117 U/L [facility] TOTAL BILIRUBIN 0.5 0.0 - 1.2 mg/dL [facility] DIRECT BILIRUBIN 0.1 0.0 - 0.2 mg/dL [facility] Bilirubin (Indirect) NOT CALCULATED 0 - 1.5 mg/dL [facility] AST 14 0 - 37 U/L [facility] ALT 8 0 - 40 U/L [facility] TOTAL PROTEIN 7.2 6.5 - 8.0 g/dL [facility] ALBUMIN 3.8(L) 3.9 - 4.8 g/dL [facility] GLOBULIN 3.4 1 - 4.8 g/dL [facility] A/G Ratio 1.12 1.00 - 4.80 RATIO [facility] Blood 01/09/2025 5:30 AM EDT 01/09/2025 5:39 AM EDT us Lisset Givens MD LAB BLOOD ORDERABLES Final R esult [facility] [address] [place] [address] * CBC and differential (01/09/2025 5:30 AM EDT) WBC 7.78 4.00 - 11.00 K/uL [facility] RBC 4.51 4.00 - 5.20 M/uL [facility] HGB 13.9 12.0 - 16.0 g/dL [facility] HCT 42.6 36.0 - 46.0 % [facility] PLT 189 150 - 450 K/uL [facility] MCV 94.5 80.0 - 100.0 fL [facility] MCH 30.8 27.0 - 31.0 pg [facility] MCHC 32.6 32.0 - 36.0 g/dL [facility] RDW 12.7 11.5 - 14.5 % [facility] MPV 10.6 8.4 - 12.0 fL [facility] NRBC 0.00 0.00 /100 WBCs [facility] ABSOLUTE NRBC 0.00 0.00 K/uL [facility] DIFF METHOD Auto [facility] NEUTS 65.2 48.0 - 76.0 % [facility] LYMPHS 23.8 18.0 - 41.0 % [facility] MONOS 8.9 4.0 - 11.0 % [facility] EOS 1.2 0.0 - 5.0 % [facility] BASOS 0.4 0.0 - 1.5 % [facility] Granulocytes, immature (%) 0.5 0.0 - 0.9 % [facility] ABSOLUTE NEUTS 5.08 1.92 - 7.60 K/uL [facility] ABSOLUTE LYMPHS 1.85 0.72 - 4.10 K/uL [facility] ABSOLUTE MONOS 0.69 0.16 - 1.10 K/uL [facility] ABSOLUTE EOS 0.09 0.00 - 0.50 K/uL [facility] ABSOLUTE BASOS 0.03 0.00 - 0.15 K/uL [facility] Granulocytes, immature 0.04 0.00 - 0.09 K/uL [facility] Blood 01/09/2025 5:30 AM EDT 01/09/2025 5:39 AM EDT us Lisset Givens MD LAB BLOOD ORDERABLES Final R esult Performing Organization Address City/[facility]/ZIP Co de Phone Number [address] [address] * Magnesium (01/09/2025 5:30 AM EDT) MAGNESIUM 2.0 1.6 - 2.6 mg/dL [facility] Blood 01/09/2025 5:30 AM EDT 01/09/2025 5:39 AM EDT us Lisset Givens MD LAB BLOOD ORDERABLES Final R esult Performing Organization Address City/[facility]/ZIP Co de Phone Number [address] [address] * Lipase (01/09/2025 5:30 AM EDT) LIPASE 32 16 - 63 U/L [facility] Blood 01/09/2025 5:30 AM EDT 01/09/2025 5:39 AM EDT us Lisset Givens MD LAB BLOOD ORDERABLES Final R esult Performing Organization Address City/[facility]/ZIP Co de Phone Number [address] [address] * (ABNORMAL) Basic metabolic panel (01/09/2025 5:30 AM EDT) SODIUM 132(L) 133 - 146 mmol/L [facility] CHLORIDE 97 96 - 108 mmol/L [facility] POTASSIUM 3.6 3.3 - 5.1 mmol/L [facility] CO2 23 21 - 35 mmol/L [facility] BUN 15 6 - 19 mg/dL [facility] CREATININE 0.70 0.5 - 1.5 mg/dL [facility] GLUCOSE 104(H) 70 - 99 mg/dL [facility] CALCIUM 9.4 8.4 - 10.3 mg/dL [facility] EGFR 90 >59 mL/min/1.7 3m2 [facility] Comment:Estimated glomerular filtration rate calculated using the CKD-EPI refit equation. ANION GAP 16 10 - 20 mmol/L [facility] Blood 01/09/2025 5:30 AM EDT 01/09/2025 5:39 AM EDT us Lisset Givens MD LAB BLOOD ORDERABLES Final R esult Performing Organization Address City/[facility] Co de Phone Number [address] [address] * (ABNORMAL) Urinalysis w/reflex Urine Culture (01/09/2025 5:05 AM EDT) COLOR Yellow Yellow [facility] CLARITY Clear [facility] GLUCOSE Negative Negative [facility] BILI 1+(A) Negative [facility] KETONES 1+(A) Negative [facility] SPECIFIC GRAVITY 1.025 1.005 - 1.030 [facility] BLOOD Negative Negative [facility] PH 6.0 5.0 - 8.0 [facility] Protein-UA Trace(A) Negative [facility] NITRITE Negative Negative [facility] Leukocyte esterase, ur Negative Negative [facility] Urine (Urine) 01/09/2025 5:0 5 AM EDT 01/09/2025 5:37 AM EDT us Lisset Givens MD URINE ORDERABLES Final Resul t [address] [address] * COVID Pandemic Respiratory Viral Order (PRO) (01/09/2025 5:05 AM EDT) Test Ordered Rapid COVID has been ordered [facility] Specimen Source/Description NASAL [facility] SARS-CoV 2 (COVID-19) PCR Not Detected Not Detected [facility] Comment: SARS-CoV-2 not detected Negative results do not preclude SARS-CoV-2 infection and should not be used as the sole basis for patient management decisions. Negative results must be combined with clinical observations, patient history, and epidemiological information. Other (Nasopharyngeal swab) 01/09/2025 5:05 AM EDT 01/09/2025 5:37 AM EDT Lisset Givens MD BODY FLUIDS AND STOOLS ORDER SUSAN Final Result Performing Organization Address [facility] de Phone Number [address] [address] * ECG 12-LEAD (01/09/2025 4:48 AM EDT) Ventricular Rate EKG/MIN 91 BPM [facility] Atrial Rate 91 BPM [facility] [place] Interval 130 ms [facility] QRS Duration 80 ms [facility] QT Interval 364 ms [facility] QTC Interval 447 ms [facility] P [place] 86 degrees [facility] R Wave [place] 38 degrees [facility] T Wave [place] 59 degrees [facility] 01/09/2025 4:48 AM EDT 01/09/2025 2:39 PM EDT Narrative [facility] - 01/09/2025 2:39 PM EDT Normal sinus rhythm Normal ECG When compared with ECG of 11-May-2011 01:26, No significant change was found Confirmed by Miguel Angel Pena ([id number]) on 01/09/2025 2:39:40 PM Lisset Givens MD ECG ORDERABLES Final Result Performing Organization Address [facility] Co de Phone Number [email or web address] * Hepatitis C antibody, qualitative (02/07/2022 6:55 AM EDT) HCV NON-REACTIV E NON-REACTI VE [facility] Blood 02/07/2022 6:55 AM EDT 02/07/2022 7:18 AM EDT us Marybel Lerma MD LAB BLOOD ORDERABLES Final Result [facility] [address] [place] [address] from Last 3 Months or Most Recently Relevant to Health Maintenance Additional Health Concerns Infection Onset Date Last Indicated CoV-Risk 01/09/2025 01/09/2025 Insurance [place]UE [place] MEDICARE PART A & B MEDICARE PPO BLUE REPLACEMENT MEDICARE PART A & B MEDICARE PPO BLUE REPLACEMENT MEDICARE PPO BLUE REPLACEMENT MEDICARE PPO BLUE REPLACEMENT MEDICARE PART A & B MEDICARE PPO BLUE REPLACEMENT MEDICARE PART A & B MEDICARE PPO BLUE REPLACEMENT MEDICARE PART A & B MEDICARE PPO BLUE REPLAC[place] BLUE REPLAC[place] MEDICARE PART A & B Advance Directives For more information, please contact: [phone] (9AM - 5PM [place], Tuesday-Tuesday) * Full Code (Latest Code Status on File) Date Activated Date Inactivated Comments 02/06/2022 9:54 AM Question Answer Comments Code Status Confirmed With: Patient Care Teams Promotions Representative Relationship Specialty Start Date End Date Nathen Dasilva MD [address] [place] [address] Dr [place], [place] [address] PCP - General Internal Medicine 09/24/20 Additional Source Comments The information contained in this document represents components of the legal health record. It is not the complete legal health record.[facility]
--- OUTSIDE RECORDS SUMMARY | 2025-01-10 17:50 | XMS_ITS | Encounter Summary ---
Author Organization [facility] Address [address] [place] [address] Phone Care Team Providers Care Lace Finisher Name Role Phone Lilliam Rain PA-C Unavailable [phone] Nathen Dasilva MD Primary Care Provider Encounter Details Date Type Department Care Team (Late st Contact Info) Description 02/13/2021 Transcribe Orders Virtual Department [address] [place] [address] Nathen Dasilva MD [address] [place] [address] [place] [address] Social History Tobacco Use Types Packs/Day Years [...] Answer Date Recorded Are you interested in help w ith more adult education (for example, completing high school, GED, job training, learning the Ni[place] language, technical skills, or developing parenting skills)? No 08/28/2020 Are you concerned about learning? Not on file 08/28/2020 Not on file 08/28/2020 Not on file 08/28/2020 Food Answer Date Recorded Within the past [...] basis, and looking for work? No 08/28/2020 Comments No Sex and Gender Information Value [...] 3:00 PM EST Office Visit [facility] [address] [place] [address] [place] [address] Berkley Garibay [address] [place] [address], [address] [place] [address] [email or web address] documented as of this encounter Visit Diagnoses Not on filedocumented in this encounter Additional Health Concerns Infection Onset Date Last Indicated Resolved Time CoV-Exposed Comment:Recent close contact documented in the COVID-19 PCR/PRO order 07/05/2021 07/08/2021 08/05/2021 1:21 AM E DT CoV-Risk 07/08/2021 07/08/2021 07/19/2021 1:22 AM EDT CoV-Risk 01/09/2025 01/09/2025 Assessment Noted Time PHQ-2 Depression Total Score: 2 08/29/19 21 10:12 AM EDT documented as of this encounter Care Teams Lace Finisher Relationship Specialty Start Date End Date Nathen Dasilva MD [address] [place] [address] PCP - General Internal Medicine 09/24/20 Lilliam Rain PA-C [address] [place] [address] Historical LMR Provider 06/29/18 2 documented as of this encounter Additional Source Comments The information contained in this document represents components of the legal health record. It is not the complete legal health record.[facility]
--- OUTSIDE RECORDS SUMMARY | 2025-01-10 17:50 | XMS_ITS | Encounter Summary ---
Author Organization [facility] Address [address] [place] [address] [place] [address] Phone Care Team Providers Care Elementary Instructional Coach Name Role Phone Nathen Dasilva MD Primary Care Provider Lilliam Rain PA-C Unavailable [phone] Nathen Dasilva MD Primary Care Provider Encounter Details Date Type Department Care Team (Late st Contact Info) Description 01/31/2018 Transcribe Orders [facility] [address] [place] [address] Nathen Dasilva MD [address] [place] [address] Dr LEVINE [place], [place] [phone] Dysuria (Primary Dx) Social History Tobacco Use Types [...] Description 05/27/2025 3:00 PM EST Office Visit [facility] [address] [place] [address] Berkley Garibay [address] [facility] [place] [address] [email or web address] documented as of this encounter Results * Urine culture (01/31/2018 12:07 PM EDT) Specimen Source/ Description URINE URINE URINE [facility] Special Requests None [facility] GRAM STAIN Moderate WBC'S , NO ORGANISMS SEEN [facility] Culture/Test >100,000 colony forming units per ml MIXED JERMAINE (3 OR MORE COLONY TYPES) Culture indicates contamination . Please resubmit if necessary. [facility] Report Status 02/01/2018 FINAL [facility] Urine (Urine) 01/31/2018 12: 07 PM EDT 01/31/2018 12:10 PM EDT Nathen Dasilva MD MICROBIOLOGY - GENERAL ORDERABLES Final Result [facility] [address] [place] [address] * (ABNORMAL) Urinalysis (01/31/2018 12:07 PM EDT) COLOR Yellow Yellow [facility] CLARITY CLOUDY [facility] GLUCOSE Negative Negative [facility] BILI Negative Negative [facility] KETONES Negative Negative [facility] SPECIFIC GRAVITY 1.020 1.005 - 1.030 [facility] BLOOD 2+(A) Negative [facility] PH 6.0 5.0 - 8.0 [facility] Protein-UA Trace(A) Negative [facility] NITRITE Negative Negative [facility] Leukocyte esterase, ur 3+(A) Negative [facility] Urine (Urine) 01/31/2018 12: 07 PM EDT 01/31/2018 12:11 PM EDT Nathen Dasilva MD URINE ORDERABLES Final Result [facility] [address] [place] [address] documented in this encounter Visit Diagnoses Diagnosis Dysuria- Primary documented in this encounter Additional Health Concerns Infection Onset Date Last Indicated Resolved Time CoV-Exposed Comment:Recent close contact 01/30/2020 01/30/2020 02/13/2020 1:24 AM EDT CoV-Exposed Comment:Recent close contact documented in the COVID-19 PCR/PRO order 07/05/2021 07/08/2021 08/05/2021 1:21 AM E DT CoV-Risk 07/08/2021 07/08/2021 07/19/2021 1:22 AM EDT CoV-Risk 01/09/2025 01/09/2025 documented as of this encounter Care Teams Elementary Instructional Coach Relationship Specialty Start Date End Date Nathen Dasilva MD [address] [place] [address] [place] [id number] PCP - General 01/31/17 08/27/20 Nathen Dasilva MD [address] [place] [address] [place] [address] PCP - General Internal Medicine 09/24/20 Lilliam Rain PA-C [address] [place] [address] Historical LMR Provider 06/29/18 2 documented as of this encounter Additional Source Comments The information contained in this document represents components of the legal health record. It is not the complete legal health record.[facility]
--- OUTSIDE RECORDS SUMMARY | 2025-01-10 17:50 | XMS_ITS | Encounter Summary ---
Author Organization [facility] Address [address] [facility] [address] [place] [address] Phone Care Team Providers Care Bending Shed Worker Name Role Phone Nathen Dasilva MD Primary Care Provider Encounter Details Date Type Department Care Team (Late st Contact Info) Description 07/08/2021 Transcribe Orders Virtual Department [address] [place] [address] Nathen Dasilva MD [address] [place] [address] Dr GERARD [address] [place] [address] Encounter for laboratory testing for COVID-19 virus (Primary Dx) Social History Tobacco Use Types [...] high school, GED, job training, learning the Danish language, technical skills, or developing parenting skills)? [...] EST Office Visit [facility] [address] [place] [address] [place] [address] Berkley Garibay [address] [place] [address], [address] [place] [address] [email or web address] Pending Results Name Type Priority Associated Diagnoses Date /Time COVID-19 PCR Order Lab Routine Encounter for laboratory testing for COVID-19 virus 07/08/2021 2:12 PM EDT documented as of this encounter Visit Diagnoses Diagnosis Encounter for laboratory testing for COVID-19 virus- Primary documented in this encounter Additional Health Concerns Infection Onset Date Last Indicated Resolved Time CoV-Exposed Comment:Recent close contact documented in the COVID-19 PCR/PRO order 07/05/2021 07/08/2021 08/05/2021 1:21 AM E DT CoV-Risk 07/08/2021 07/08/2021 07/19/2021 1:22 AM EDT CoV-Risk 01/09/2025 01/09/2025 Assessment Noted Time PHQ-2 Depression Total Score: 2 08/29/19 10:12 AM EDT documented as of this encounter Care Teams Bending Shed Worker Relationship Specialty Start Date End Date Nathen Dasilva MD [address] [place] [address] [place] [id number] PCP - General Internal Medicine 09/24/20 documented as of this encounter Additional Source Comments The information contained in this document represents components of the legal health record. It is not the complete legal health record.[facility]
--- OUTSIDE RECORDS SUMMARY | 2025-01-10 17:50 | XMS_ITS | Encounter Summary ---
Author Organization [facility] Address [address] [facility] [address] [place] [address] Phone Care Team Providers Care Swine Nutritionist Name Role Phone Nathen Dasilva MD Primary Care Provider Encounter Details Date Type Department Care Team (Late st Contact Info) Description 02/06/2022 Procedure [facility], Ct Scan - [facility] [address] [place] [address] Social History Tobacco Use Types Packs/Day Years [...] high school, GED, job training, learning the Guyanese language, technical skills, or developing parenting skills)? [...] PM EDT documented as of this encounter Functional Status * Calculated C-SSRS Risk Score (Lifetime/Recent) Answer Date of Assessment Author No Risk Indicated 02/06/2022 1:00 AM EDT Dee Dee Combs RN * [facility] Suicide Severity Rating Scale (Screener/Recent Self-Report) Question Answer Date of Assessment Author 1. Wish to be (Past 1 Month) No 02/06/2022 1:00 AM EDT Tamiko Clancy RN 2. Non-Specific Active Suicidal Thoughts (Past 1 Month) No 02/06/2022 1:00 AM EDT Tamiko Clancy RN 6. Suicidal Behavior (Lifetime) No 02/06/2022 1:00 AM EDT Tamiko Clancy RN documented as of this encounter Plan of Treatment Upcoming Encounters Date Type Department Care Team (Late st Contact Info) Description 05/27/2025 3:00 PM EST Office Visit [facility] [address] [place] [address] [place] [address] Berkley Garibay [address] [place] [address], [address] [place] [address] [email or web address] documented as of this encounter Visit Diagnoses Not on filedocumented in this encounter Additional Health Concerns Infection Onset Date Last Indicated Resolved Time CoV-Risk 01/09/2025 01/09/2025 Assessment Noted Time PHQ-2 Depression Total Score: 2 08/29/19 10:12 AM EDT documented as of this encounter Care Teams Swine Nutritionist Relationship Specialty Start Date End Date Nathen Dasilva MD [address] [place] [address] [place] [address] PCP - General Internal Medicine 09/24/20 documented as of this encounter Additional Source Comments The information contained in this document represents components of the legal health record. It is not the complete legal health record.[facility]
--- OUTSIDE RECORDS SUMMARY | 2025-01-10 17:50 | XMS_ITS | Clinical Summary ---
Author Organization [facility] Address [address] [place] [address] Care Team Providers Care Loss Prevention Supervisor Name Role Phone Nathen Dasilva MD Primary [...] 78 08/12/2014 12:59 PM EDT Temperature 37.1 C (98.7 F) 08/12/2014 12:59 PM EDT Respiratory Rate 18 08/12/2014 12:59 PM EDT [...] COVID-19 Vaccine (1 - 2023-2 5 season) 2024 Influenza (#1) 2024 HPV Vaccine (No Doses Required) Completed Hep A Aged Out No longer eligi [...] Pap Smear Discontinued Zoster (Zostavax) Discontinued Insurance [employer] FEE FOR SERVICE MEDICARE Care Teams Loss Prevention Supervisor Relationship Specialty Start Date End Date Nathen Dasilva MD [address] [place] [address] [place] [address] PCP - General Internal Medicine 08/12/14
== END 2025-01-10 14:07 | disposition home or self-care (01) ==
LOC: HO.HMCHD 13:07
PROVIDERS: PCP Internal Medicine; Visit Provider Physician Assistant Medical
DX: I10 Essential (primary) hypertension (principal); R63.4 Abnormal weight loss; Z91.018 Allergy to other foods; H61.23 Impacted cerumen, bilateral; M94.0 Chondrocostal junction syndrome [Tietze]

== ENCOUNTER → 2025-01-10 13:07 | Outpatient (BNVA) | payer MEDICARE, SELFPAY | PROVIDERS: PCP Internal Medicine; Visit Provider Physician Assistant Medical | DX: I10 Essential (primary) hypertension (principal); R63.4 Abnormal weight loss; Z68.21 Body mass index [BMI] 21.0-21.9, adult; H61.23 Impacted cerumen, bilateral; M94.0 Chondrocostal junction syndrome [Tietze]; Z79.899 Other long term (current) drug therapy; Z91.018 Allergy to other foods; Z13.30 Encounter for screening examination for mental health and behavioral disorders, unspecified; Z13.39 Encounter for screening examination for other mental health and behavioral disorders | CPT/HCPCS: 96127; 99212 ==